=== PATIENT | female | born 1970 | race Caucasian/White ===

== ENCOUNTER → 2018-01-30 09:00 | Outpatient (CLI) | payer OTHER, SELFPAY ==
[2018-01-08 13:39] VITALS: BMI 23.1
--- NOTE | 2018-01-30 09:03 | BI_ITS ---
MAMMOGRAPHY - BILATERAL DIAGNOSTIC REASON FOR EXAM: Female, 47 years old. PERTINENT HISTORY: Non-contributory. TECHNIQUE: Digital examination. Mediolateral oblique (MLO) and craniocaudad (CC) views of both breasts were obtained. CAD: COMPARISON: January 08, 2015 FINDINGS: Breast Composition: Heterogeneous dense fibroglandular tissue that may obscure an underlying small lesions. There are no dominant masses or suspicious calcifications. Multiple there are benign scattered calcifications bilaterally. No other significant abnormalities are identified. No significantly enlarged lymph nodes in the axillary areas BI/DIAG MAMM W/CAD, BILAT IMPRESSION: Stable bilateral diagnostic mammogram. ASSESSMENT CATEGORY: BIRADS-ll. FOLLOW UP RECOMMENDATION on a yearly basis: Approximately 10% of breast cancers are not detected by mammography. A normal mammogram should not delay biopsy of a clinically suspicious abnormality. Electronically Signed: Karlene Devi, at 9:19 EST Tel , Service support ,
== END ==
PROVIDERS: Family Provider Family Medicine; PCP Family Medicine; Referring Provider Nurse Practitioner Family; Visit Provider Family Medicine
DX: N64.4 Mastodynia (principal)
CPT/HCPCS: 77062; 77066; G0279

== ENCOUNTER → 2018-09-12 16:43 | Outpatient (CLI) | payer OTHER, SELFPAY ==
[2018-01-08 13:39] VITALS: BMI 23.1
[2018-09-12 17:31] LABS: Hematocrit 40.4 % (37-47); Hemoglobin 13.6 g/dL (12.0-15.0); Mean Corp Hgb Conc 33.7 g/dL (32-36); Mean Corpuscular Volume 95.1 fL (81-99); Mean Platelet Vol. 10.6 fl (6.2-12.0); Platelet Count 289 K/mm3 (150-450); RBC Distribution Width SD 38.5 fl (35.1-43.9); Red Blood Count 4.25 M/mm3 (4.2-5.4); White Blood Count 8.1 K/mm3 (4.4-11.0)
[2018-09-12 18:10] LABS: Amylase 27 U/L (25-115); Lipase 104 U/L (73-393); Thyroid Stim Hormone (TSH) 2.06 uIU/mL (0.358-3.74)
[2018-09-13 10:03] LABS: ALB/GLOB Ratio 1.1 RATIO (0.9-2.4); AST(SGOT) 197 U/L (15-37); Alanine Aminotransfer ALT/SGPT 139 U/L (13-56); Albumin, Serum 4.1 g/dL (3.2-5.0); Alkaline Phosphatase 99 U/L (45-117); Anion Gap 12 (5-15); BUN 16 mg/dL (7-18); BUN/Creat Ratio 19.6 RATIO (10-20); Calcium,Total 9.9 mg/dL (8.5-10.1); Chloride 103 mmol/L (98-107); Creatinine, Serum 0.82 mg/dL (0.55-1.02); EST Glomerular Filtration Rate 80 mL/min (>60); Est Glom Filt Rate - Afr Amer 96 mL/min (>60); Globulin 3.7 g/dL (2.2-4.2); Glucose 111 mg/dL (74-106); Protein, Total 7.8 g/dL (6.4-8.2); Sodium Level 141 mmol/L (136-145)
== END ==
PROVIDERS: Family Provider Family Medicine; PCP Family Medicine; Referring Provider Family Medicine; Visit Provider Nurse Practitioner Family
DX: R10.9 Unspecified abdominal pain (principal)
CPT/HCPCS: 36415; 80053; 82150; 83690; 84443; 85027

== ENCOUNTER → 2018-09-16 08:42 | Outpatient (CLI) | payer OTHER, SELFPAY ==
[2018-01-08 13:39] VITALS: BMI 23.1
--- NOTE | 2018-09-16 08:51 | US_ITS ---
STUDY: ABDOMINAL ULTRASOUND REASON FOR EXAM: Female, 48 years old. Diffuse abdominal pain TECHNIQUE: Transabdominal ultrasound was performed with real-time and static wong scale imaging. TECHNICAL QUALITY: Adequate. COMPARISON: None. FINDINGS: Liver: The liver measures 15.9 cm. There is normal echogenicity of the liver. The bile ducts are within normal limits. There is hepatic color flow. The direction of portal flow is hepatopetal. There is no demonstrated mass lesion. Portal vein measurement: Gallbladder: Normal distended gallbladder. The gallbladder wall measures 2.4 mm. There is a negative sonographic Jordan's sign. There is no pericholecystic fluid. There are multiple echogenic structures within the gallbladder, consistent with multiple gallstones, and a 5.7 mm nonshadowing polyp.. Common Bile Duct (C.B.D.): The common bile duct measures 4.5 mm. Pancreas: Normal size of the head, body and tail of the pancreas. There is normal echogenicity of the pancreas. There is no demonstrated pancreatic mass or cyst. Spleen: Normal size of the spleen. The spleen measures 10.3 cm. There is a 2.6 cm anterior splenic cyst. Right Kidney: Normal size of the right kidney. The right kidney measures 10.7 x 4.5 x 4.5 cm. Normal renal cortex. The right cortex measures 1.5 cm. There is no demonstrated renal mass or cyst. There is no right hydronephrosis. Left Kidney: Normal size of the left kidney. The left kidney measures 10.8 x 5.0 x 4.6 cm. Normal renal cortex. The left cortex measures 1.5 cm. There is no demonstrated renal mass or cyst. There is no left hydronephrosis. Aorta: Tapers normally I.V.C.: The IVC is patent. There is no ascites. US/Abdomen Complete IMPRESSION: Cholelithiasis, no sonographic evidence of acute cholecystitis Splenic cyst No obstructive uropathy Electronically Signed: Evan Mac MD at 20:29 EDT , Service support ,
== END ==
PROVIDERS: Family Provider Family Medicine; PCP Family Medicine; Referring Provider Nurse Practitioner Family; Visit Provider Nurse Practitioner Family
DX: R10.9 Unspecified abdominal pain (principal)
CPT/HCPCS: 76700

== ENCOUNTER 2018-09-28 10:48 | Day surgery (SDC) | payer OTHER, SELFPAY ==
--- NOTE | 2018-09-25 01:48 | HP_ITS ---
Intake Vital Signs 09/25/18 Body Mass Index (BMI) 23.1 09/25/18 Height 5 ft 7 in 09/25/18 Weight: 155 lb 09/25/18 Body Mass Index (BMI) 24.3 09/25/18 Blood Pressure 137/94 H 09/25/18 Blood Pressure Location Rt brachial 09/25/18 Pulse Rate 72 09/25/18 Pulse Source Monitor 09/25/18 Temperature 97.7 F L 09/25/18 Temperature Source Oral 09/25/18 Pulse Ox 98 09/25/18 Oxygen Delivery Method room air Intake Visit Reasons: Cholelithiasis [facility] U/S 09/16/18 Chief Complaint: Right breast pain. [employer] Member Required: No Is patient in pain?: No Allergies No Known Allergies Allergy (Verified 09/25/18 13:28) Medications ibuprofen 200 mg tablet 200 mg PO TID-QID PRN 01/08/18 [History Confirmed 09/25/18] [facility] Medical History Incontinence (Acute) Surgical History HISTORY OF KIDNEY STONE REMOVAL (Acute) History of eye surgery (Acute) Family History (Updated 09/25/18 @ 13:27 by Kortney Glynn) Mother Hypertension Sister Hypertension Social History (Updated 09/25/18 @ 13:49 by Alexis Lr MD) Smoking Status: Never smoker alcohol intake: never substance use type: does not use HPI HPI HPI: THEODORE JONES, is a 48 F who presents to the office today for HPI HPI Surgical H&P: Yes HPI: THEODORE JONES, is a 48 F who presents to the office today for surgical consultation regarding an episode of epigastric pain with radiation to her back that was so severe that she had to be taken from the [facility] to the emergency room. She has had a couple additional episodes since then. She denies fever or chills or sweats. Today she still does not feel well. She was seen on September 12 with an AST of 197 and alkaline phosphatase of 99 and ALT of 139 and a total bilirubin of 0.7. White blood cell count was 8.1 with he will 13.6 and hematocrit 40.4 and a platelet count of 289,000. At the [facility] on September 16, 2018 she had a ultrasound showing multiple stones in the gallbladder. Gallbladder wall is 2.4 mm. No pericholecystic fluid. Multiple stones and may be 5.7 mm nonshadowing polyp. Common bile duct was 4.5 mm. Splenic cyst was seen. The patient has not had any previous abdominal surgery. She did not recognize that she has a small umbilical hernia. She otherwise remains active. She enjoys good health. ROS General General: No weight change, appetite, fatigue, colon cancer, breast cancer or weakness HEENT HEENT: Yes eye surgery; no difficulty swallowing, eye injury, swollen glands or hoarseness Endo Endocrine: No thyroid disease, diabetes mellitus, thyroid cancer, Hair loss, heat intolerance or cold intolerance Skin Skin: No rash or changing moles Breast Breast: No left breast lump, right breast lump, nipple discharge, breast pain, abnormal mammogram, abnormal US or breast enlargement Musc Musculoskeletal: No back problems, arthritis, rheumatoid arthritis, gout or joint pain Cardio Cardiovascular: No murmur, pacemaker, heart disease, atrial fibrillation, high blood pressure, heart attack, heart stent, palpitations, shortness of breat with exertion or chest pain Psych Psychiatric: No depression, anxiety or hearing voices Resp Respiratory: No shortness of breath, No sleep apnea, No cough, No COPD, No asthma, No emphysema, No wheezing Gastro Gastrointestinal: Yes abdominal pain, Yes nausea or vomiting, No diarrhea, No constipation, No blood in stool, No acid reflux, No hemorrhoids, No ulcers, Yes gallbladder problem, No black,tarry stools Dario Hematologic: No blood thinners, No blood disorders, No bleeding, No anemia, No blood clots Neuro Neurologic: No system reviewed and no additional complaints, except as docu, No as per HPI, No abnormal walking, No abnormal hearing, No abnormal movements, No abnormal speech, No behavioral changes, No burning sensations, No confusion, No seizure-like activity, No unsteadiness, No dizziness, No localized weakness, No frequent falls, No headache(s), No lack of coordination, No loss of vision, No memory loss, No numbness, No other visual disturbances, No radiating pain, No restless legs, No sensory deficit, No fainting, No tingling, No tremor(s), No weakness, No other Exam Const General: cooperative, healthy appearing, comfortable, no acute distress Nutritional Appearance: average body habitus Orientation: alert, awake, oriented x3 HENMT Head: normal to inspection Eyes General: appearance normal, both eyes and all related structures Chest Chest palpation & inspection: normal inspection of the chest Breast Palpation: No nipple discharge Resp Effort & Inspection: normal respiratory effort Auscultation: clear to auscultation bilaterally Cardio Rate: regular rate Heart Sounds: no murmurs GI Palpation: soft Auscultation: normal bowel sounds Other: Small nontender umbilical hernia with preperitoneal fat Musc Cervical Spine: normal cervical lordosis Neuro Cognition: normal cognition Extrem General: no calf tenderness bilaterally Psych Affect: normal affect Assessment & Plan Problems 1. Calculus of gallbladder with chronic cholecystitis without obstruction K80.10 2. Umbilical hernia without obstruction or gangrene K42.9 Plan 48-year-old female. Findings are very much consistent with chronic cholecystitis cholelithiasis. She still is not feeling completely normal consistent with ongoing biliary colic. She has a small umbilical hernia. I recommend to her a laparoscopic cholecystectomy with selective cholangiograms and an umbilical herniorrhaphy. The patient and her have had an opportunity to ask and have questions answered. We will schedule and expedite her care. I very much appreciate the kind opportunity of assisting with her surgical care. CC: Dr. RASHID Abbott and Jimy Begum, HAT TRIMMER Alexis Lr M.D., F.A.C.S. Coding Level of Care Code Off vis,new,level 3 Diagnoses Calculus of gallbladder with chronic cholecystitis without obstruction K80.10 ??Cholelithiasis location: gallbladder ??Biliary obstruction: without biliary obstruction Umbilical hernia without obstruction or gangrene K42.9 09/25/18 1349 <Electronically signed by Alexis villagomez MD> Date _ Alexis Lr MD I have re-examined the patient. There are no clinical changes since date of exam.
[2018-09-25 13:29] VITALS: BMI 23.1
[2018-09-28] VITALS (10 sets, daily range): BP systolic 109–126; BP diastolic 63–79; PULSE 65–82; RESP 16; TEMP 36.7–37.1; O2SAT 93–100; BMI 23.6
--- NOTE | 2018-09-28 | GALL_PTH ---
PATIENT: THEODORE JONES LOC: [facility] [place] U#:[id number] AGE/SX: 48/F ROOM: RE09/28/[address]: Dr. Alexis Lr MD : 1970 BED: DIS: 09/28/2018 SPEC #: [id number] RECD: 09/28/18 15:50 STATUS: RAJ CHERRY #: [id number] VITA: 09/28/18 00:[address]: Alexis Lr DEPT: SURGICAL PATHOLOGY RECD BY: Andrea Diaz ENTERED: 09/29/18 08:52 SP TYPE: IZZY JESUS DR: Dr. Ryan Abbott MD Tissues: Gallbladder, NOS Procedures: Surgery Specimen Level III HEADER OPERATION: Laparoscopic cholecystectomy with IOC, umbilical hernia repair PRE-OP DIAGNOSIS: Calculus of gallbladder with chronic cholecystitis without obstruction, cholelithiasis, umbilical hernia TISSUE SUBMITTED: Gallbladder MICROSCOPIC DIAGNOSIS Gallbladder, cholecystectomy: Cholesterolosis, chronic cholecystitis and sludge. AM:mark 10/02/17 MICROSCOPIC DESCRIPTION Slides are reviewed. GROSS DESCRIPTION Received is one container labeled with the patient's name and designated gallbladder. The specimen consists of a gallbladder measuring 8.5 cm in length and up to 4 cm in diameter. The external surface is pink-wells, smooth and glistening for the most part. Focally it is granular, hemorrhagic and contains cautery artifact. The gallbladder contains green-yellow mucoid bile and multiple irregular greenish black stone, stone fragment and sludge material measuring in aggregate 3.5 cm x 3 cm x 1 cm and 0.1 to 0.5 cm in greatest dimension. The gallbladder wall measures up to 0.2 cm in thickness. Paper Stacker sections from the gallbladder and the cystic duct are submitted in one cassette. / SJ:sp 09/29/18 TC: 3 CPT: 66251
--- NOTE | 2018-09-28 10:53 | EKG12_ITS ---
Test Reason : PREOP Blood Pressure : / mmHG Vent. Rate : 067 BPM Atrial Rate : 067 BPM P-R Int : 180 ms QRS Dur : 088 ms QT Int : 432 ms P-R-T Axes : 058 034 039 degrees QTc Int : 456 ms Normal sinus rhythm Normal ECG No previous ECGs available Confirmed by BRIDGETTE GRENEE, MASSIEL ([id number]), pictures editor FLAQUITO TREJO ([id number]) on 10/02/2018 1:38:28 PM Referred By: Alexis Lr Confirmed By:MASSIEL ANGELES MD
[2018-09-28 11:19] LABS: Internal QC Validated? YES +Cl - CLEAR BKGD; Pregnancy, Urine Negative Negative
[2018-09-28] MEDS: Lactated Ringers 1,000 ML 15 ML IV (11:53)
--- NOTE | 2018-09-28 12:35 | RAD_ITS ---
PROCEDURE: FLUOROSCOPY ASSISTANCE DATE OF EXAMINATION: 09/28/2018 INDICATION: Female, 48 years old. Intraoperative cholangiogram FLUOROSCOPY TIME (if supplied): (0:23) minutes/seconds. 161 cine fluoroscopic images. RADIATION DOSAGE (If Supplied By Facility): Please see attached dosage report. IMPRESSION/FINDINGS: Images depict intraoperative cholangiogram, no apparent filling defect within the biliary tree, nondilated common bile duct, normal tapering into the sphincter, normal spillage into the small bowel. Fluoroscopic images submitted to PACS for procedural/postsurgical documentation. Please see procedural/surgical note. Radiologist not present at the time of examination. Electronically Signed: Juan Bianchi MD at 14:32 EDT Tel , Service support , RAD/Cholangiogram/ O R,Initial
[2018-09-28] MEDS: Cefazolin 2 GM in 0.9% Normal Saline 100 ML IV (12:39)
--- NOTE | 2018-09-28 12:50 | PCM.DC.GS ---
Discharge Diet: Light diet - advance as tolerated - if you have questions about your diet instructions, please talk to you doctor. Discharge Activity: May Not Drive - for 3-5 days or while taking narcotic pain medicine. May shower in (days): 1 Lifting Restrictions: 10 pounds Call your doctor if your incision/area has: Continuous Slow Oozing, Sudden Increased Bleeding, Increased Pain/ Swelling, Increased Redness, Foul Smelling Discharge Call your doctor if you observe: Fever of 101 or Higher Suture Line Care: Avoid Pulling/Pushing, Avoid Pinching/Bending Additional Dressing/Incision Instructions:: Change or remove dressing in 4 days. Leave steri-strips in place for 1 week. Allergies/Adverse Reactions: Allergies No Known Allergies Allergy (Verified 09/28/18 11:34) Medications to take at Discharge ibuprofen 200 mg tablet 200 mg PO TID-QID PRN 01/08/18 Hydrocodone Bitart/Apap 5-325 [Pearson 5MG-325MG] 1 tab PO Q4H PRN PRN 2 Days #8 tab 09/28/18 The following prescriptions were given: Hydrocodone Bitart/Apap 5-325 [Pearson 5MG-325MG] 1 tab PO Q4H PRN PRN 2 Days #8 tab PRN Reason: Pain Transmission Status: Received by [facility] Orders to be completed after discharge: ,Urine Time Frame: 09/28/18, Facility: [facility], Location: Laboratory Primary Care Physician: Ryan Abbott MD [Primary Care Provider] - Test Results: Test results from this visit will be discussed in further detail at your follow-up appointment, if applicable. Please Follow Up With: Alexis Lr MD - [phone] When: Call to make an appointment to be seen in about 10 days.
[2018-09-28] MEDS: Bupivacaine Mpf 0.5% 30 ML VIAL (14:00)
--- NOTE | 2018-09-28 14:00 | OP.PCM_ITS ---
Problem List (1) Cholelithiasis with chronic cholecystitis Status: Chronic Qualifiers: Cholelithiasis location: gallbladder Biliary obstruction: without biliary obstruction Qualified Code(s): K80.10 - Calculus of gallbladder with chronic cholecystitis without obstruction (2) Umbilical hernia without obstruction or gangrene Status: Acute Report of Operation Date of Procedure: 09/28/18 Pre-Operative Diagnosis: Chronic cholecystitis, cholelithiasis, umbilical hernia Post-Operative Diagnosis: Same Surgery/Procedure Performed:: Laparoscopic cholecystectomy with cholangiograms. Umbilical herniorrhaphy Description of Surgical Findings:: Timeout and informed consent was obtained. 48-year-old female was taken out from placement table underwent general endotracheal intubation anesthesia. Ancef 2 g given intravenous preoperatively. The abdomen sterilely prepped draped. A curvilinear incision was made in the inferior portion of the umbilicus. Sharp dissection was carried down through the subcutaneous tissue. The umbilical hernia was encountered tissue was dissected free to get access to the fascia elevating the umbilical skin. A son catheter was inserted and the abdomen was insufflated with CO2 to a pressure of 10 mmHg pressure. 5-minute trochars were placed in the epigastric right upper quadrant right lateral upper quadrant region. The abdomen was rapidly inspected no evidence of any superficial abnormalities other than there was adhesions of the thinned out omentum to the gallbladder. The gallbladder was distracted and blunt dissection hemo-lock clips and electrocautery dissection was required to free the omentum from the gallbladder to allow for distraction of the gallbladder. The duodenum was febrile densely adherent to the gallbladder and it had to be carefully dissected free as well. Then the infundibular area could be identified. It was bluntly dissected free until clearly the cystic artery and cystic duct were identified. The critical view was achieved. 2 hemo-lock clips were placed on the cystic artery and one distally prior to transecting it. A hemo-lock clip was placed on the cystic duct incision within the cystic duct and a clench Abhijeet catheter inserted through a 14-gauge Angiocath. Fluoroscopically control claims grams were obtained demonstrating normal ductal anatomy and free flow into the small bowel. The cholangiogram catheter was removed and additional hemo-lock clip was placed on the cystic duct stump prior to transecting it. Additional hemo-lock clips were used on the gallbladder peritoneum to obtain hemostasis. The gallbladder was dissected free from the liver bed using electrocautery. Complete hemostasis was intact. The gallbladder was placed in a retrieval bag. The right upper quadrant was irrigated and aspirated free of excess fluid. The liver bed was again inspected and it was noted to be hemostatic. The gallbladder was then exited through the umbilicus. The remaining trochars removed under visualization and the abdomen was allowed to deflate of the CO2. The umbilical hernia was approximated transversely with multiple simple sutures of 0 Nurolon. Excess umbilical skin was sharply transected free to allow for a more cosmetic closure. The excess skin was discarded after inspection. Skin edges were approximated with interrupted 4 Monocryl subdermal stitches. Steri- Strips Telfa OpSite dressings applied. Sponge and instrument and needle counts were reported the surgeon to be correct. Blood loss was minimal. She tolerated the procedure well was taken to the recovery area in satisfactory condition without apparent complication. Specimens gallbladder. Drains none. Blood loss minimal. Alexis Lr M.D., F.A.C.S. Type of Anesthesia:: General Anesthesiologist: Adams Skelton
[2018-09-28] MEDS: Lactated Ringers 1,000 ML 100 ML IV (16:01)
== END 2018-09-28 16:53 | disposition home or self-care (01) ==
LOC: SDC 10:49 → AC 10:50
PROVIDERS: Anesthesiology; Family Provider Family Medicine; PCP Family Medicine; Referring Provider Surgery; Visit Provider Surgery
PROC: (CPT 47610; principal; 2018-09-28 12:15)
DX: K80.11 Calculus of gallbladder with chronic cholecystitis with obstruction (principal); K42.9 Umbilical hernia without obstruction or gangrene; Z87.442 Personal history of urinary calculi
CPT/HCPCS: 47563; 49585; 74300; 76000; 81025; 88304; 93005; J7120; J2405

== ENCOUNTER → 2019-10-05 15:03 | Outpatient (CLI) | payer OTHER, SELFPAY ==
[2018-09-28 11:38] VITALS: BMI 23.6
[2019-10-11 06:37] LABS: HPV APTIMA, High Risk Negative (Negative); HPV Reflexed? NOT INDICATED
== END ==
PROVIDERS: PCP Family Medicine; Visit Provider Student in an Organized Health Care Education/Training Program
DX: Z12.4 Encounter for screening for malignant neoplasm of cervix (principal)
CPT/HCPCS: 88175; G0145

== ENCOUNTER 2020-02-11 00:17 | Emergency (ER) | payer OTHER, SELFPAY ==
[2018-09-28 11:38] VITALS: BMI 23.6
[2020-02-11 00:19] VITALS: BP 153/83; PULSE 78; RESP 16; TEMP 36.4; O2SAT 95; BMI 25.3
--- NOTE | 2020-02-11 00:51 | ED.VIS.UPPEX ---
History of Present Illness Chief Complaint: Bite Informant: Patient Occurred: Today - JPTA Mechanism/Context: - - accidentally bitten by her dog Context: Sudden Onset Timing: Continuous Quality of Pain: - - sore Location: R palm Current Severity: Mild Maximum Severity: Moderate Worsened by: palpation Relieved by: remaining still Associated Symptoms: Negative for: Parasthesia, Weakness, Loss of Funtion Narrative: Accidentally bitten by her dog as he thought she was reaching down to take his new bone away. Dog is not ill. Patient [id number]. Tetanus Immunization: <5 years Past Medical History - Allergies and Home Meds Allergies/Adverse Reactions: Allergies No Known Allergies Allergy (Verified 02/11/20 00:18) Primary Care Physician: Ryan Abbott MD [STAFF PHYSICIAN] - Smoking Status: Never smoker Review of Systems General: Denies: Chills, Fever, Sweats Musculoskeletal: Reports: Extremity Pain. Denies: Swelling Skin: Reports: Wounds. Denies: Rash Neurological: Denies: Headache, Weakness, Numbness Physical Exam Vital Signs/Narrative: Vital Signs Temp Pulse Resp BP Pulse Ox 02/11/20 00:19 97.6 F L 78 16 153/83 H 95 General: Well nourished, Well developed, - - NAD Head: Normocephalic, Atraumatic Extremeties: Superficial laceration to the palm. Minor oozing of blood. Full range of motion of all joints of all fingers. No other injury. No sign of infection. Skin: Normal color, Trauma - 3cm partial-thickness clean appearing mostly linear laceration to the right palm, near the volar aspect of the MCPJ of the middle finger Neurological: Alert, Oriented x3, Cranial nerves II-XII grossly intact, Normal Strength, Normal Sensation Psychological: Normal affect, Normal Mood Diagnostic/Tx/Re-eval - Medical Decision Making Laceration repaired loosely with 3 sutures, started on Augmentin for prophylaxis although I think the risk of this getting infected is low since the laceration does not protrude beyond the dermis, we discussed reasons to return and suture removal in 10-14 days. Procedures - Lacerations R hand Length: 3 cm Depth: Skin Shape: Linear Prep: Sterile Conditions, Chlorhexadine Laceration repair: Lidocaine - 2%, 1cc, Local Number of Sutures/Jacqueline: 3 Suture Information: Ethilon, Simple, 5-0 ED Disposition - Plan for ED Patient: Disposition: Home or Assisted Living Diagnosis: Dog bite of right hand, Laceration of right hand Instructions: ED Dog Bite, ED Laceration, Hand: All Closures Prescriptions: Amox/Clavulanate Tablet [Augmentin Tablet] 875 mg PO Q12H 5 Days #10 tab Transmission Status: Pending to [facility] Referrals: Ryan Abbott MD [STAFF PHYSICIAN] - 10-14 Days suture removal (Or ER/urgent care)
[2020-02-11] MEDS: Lidocaine/Epi/Tetracaine 50 ML 1 APPLIC TOPICAL (00:55)
[2020-02-11] MEDS: Lidocaine 2% (20 ml mdv) 20 ML Vial 10 ML INFILT (01:36)
[2020-02-11] MEDS: Amox/Clavulanate 875 MG Tablet PO (01:36)
[2020-02-11 01:43] VITALS: RESP 16
== END 2020-02-11 01:44 | disposition home or self-care (01) ==
PROVIDERS: Emergency Provider Emergency Medicine; PCP Family Medicine
DX: S61.451A Open bite of right hand, initial encounter (principal); W54.0XXA Bitten by dog, initial encounter
CPT/HCPCS: 12002; 99284

== ENCOUNTER 2020-07-10 05:57 | Day surgery (SDC) | payer OTHER, SELFPAY ==
[2020-07-08 10:44] LABS: Hematocrit 39.5 % (37-47); Hemoglobin 13.2 g/dL (12.0-15.0); Mean Corp Hgb Conc 33.4 g/dL (32-36); Mean Corpuscular Volume 95.6 fL (81-99); Mean Platelet Vol. 10.4 fl (6.2-12.0); Platelet Count 277 K/mm3 (150-450); RBC Distribution Width CV 11.8 % (11.6-14.6); RBC Distribution Width SD 40.4 fl (35.1-43.9); Red Blood Count 4.13 M/mm3 (4.2-5.4); White Blood Count 5.9 K/mm3 (4.4-11.0)
[2020-07-10 06:16] LABS: Internal QC Validated? YES +Cl - CLEAR BKGD; Pregnancy, Urine Negative Negative
[2020-07-10 06:26] VITALS: BP 117/77; PULSE 64; RESP 16; TEMP 36.2; O2SAT 98; BMI 25.0
[2020-07-10] MEDS: Lactated Ringers 1,000 ML 100 ML IV (06:32)
--- NOTE | 2020-07-10 07:10 | PCM.HP.BLA ---
History and Physical Date of Admission: 07/10/20 HISTORY OF PRESENT ILLNESS: On 07/04/2020, Neeru Holbrook, a 50 year old female 3 0 0 0 3, presented for:hysteroscopy and D+C for post menopausal bleeding with thickened endometrial stripe. Attempted EMB in office, unable to complete due to cervical stenosis. ALLERGIES: NKA MEDICATIONS HISTORY: Patient is also takin. No Meds REVIEW OF SYSTEMS: GENERAL - Denies fever, or chills SKIN - Denies skin changes EYES - Denies visual changes EARS - Denies difficulty hearing NOSE - Denies nasal congestion or bleeding MOUTH - Denies sore throat or difficulty swallowing NECK - Denies pain or swelling RESPIRATORY - Denies shortness of breath or wheezing CARDIOVASCULAR - Denies palpitations or chest pain GASTROINTESTINAL - Denies nausea, vomiting, diarrhea, constipation GENITOURINARY - Denies dysuria, frequency of urination, incontinence of urine MUSCULOSKELETAL - Denies joint or muscle pain NEUROLOGICAL - Denies localized numbness or weakness PSYCHIATRIC - Denies depression or anxiety ENDOCRINE - Denies heat or cold intolerance, weight loss or gain HEMATO-IMMUNOLOGIC - Denies excesive bleeding with cuts PAST HISTORY: Breast/Ovarian/Colon Cancers - Denies Infections - Chicken pox Illnesses - no serious past illnesses Accidents - no injuries of consequence History of Abnormal PAPS - Denies Hospitalizations - Childbirth SURGICAL HISTORY: 1. basket extraction, 2008 2. LEFT eye surgery 3. 09/16/2018 cholecystectomy [facility] MENSTRUAL HISTORY: LMP Known?- Approximate-Month KnownAmount/Duration - 7 days, Regularity - Irregular, Frequency - variable days, LMP - 05/16/20, Age Onset Menarche - 13 PAST PREGNANCIES: Total Pregnancies - 3; Full Term Pregnancies - 3; Premature - 0; Abortions, Induced - 0; Abortions, Spontaneous - 0; Ectopics - 0; Multiple Births - 0; Living Children - 3 FAMILY HISTORY (OLD): Family history of Heart Disease. Paternal Grandmother: Vaginal Cancer. 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 Drug Use - denies use of street drugs Sexual Activity - Spouse-Sig Other Name - Brayden Spouse-Sig Other Occupation - [employer] Spouse-Sig Other Phone No - [phone] Children Name(s) - Alec Medrano Audrey Control - Vasectomy BP- 106/72 Sitting, Right arm, regular cuff Weight- 155.60 lbs Height- 66.50 inch BMI:24.79 CONSTITUTIONAL - NAD, well nourished, and well developed SKIN - No rash, lesions, or ulcers HEENT - Normocephalic, PERRLA, EOMI NECK - No nodes, no nuchal rigidity and thyroid normal size and texture LYMPH NODES - Palpation of lymph nodes in neck and groins within normal limits LUNGS - CTA x2 without wheezes, crackles or rales CARDIAC - Regular rate and rhythm without rubs, murmurs, or gallops ABDOMEN - Without hepatosplenomegaly, distention, masses, rebound, or guarding; normal bowel sounds; no hernias EXTREMITIES - No edema or calf tenderness NEUROLOGICAL - Cranial nerves II-XII grossly intact PSYCHIATRIC - A and O to time, place, person, mood and affect ASSESSMENT/Plan: Postmenopausal Bleeding No menses for a couple years, bleed x1 this summer. Was seen in fall for US. ES >4 mm. EMB attempted but cervical stenosis was present and procedure could not be completed. Patient had been referred to Dr. Larson for management of prolapse and incontinence, and she was lost to follow up until recently. Pt is low risk for endometrial cancer being thin, having children. However emphasized need for evaluation Planned hysteroscopy dilation and curettage due to episode of PMB and thickened endometrial stripe. R/B/A discussed. Risks include, but are not limited to: risk of bleeding to the point of transfusion, infection, injury to surrounding tissue including bowel/bladder, uterine perforation, VTE, ICU admission.
--- NOTE | 2020-07-10 07:30 | UTC_PTH ---
PATIENT: THEODORE [place]ON[place] [facility] [id number] AGE/SX: 50/F ROOM: RE07/10/[address]: Dr. Cherise Abbott DO : 1970 BED: DIS: 07/10/2020 SPEC #: [id number] RECD: 07/10/20 11:33 STATUS: RAJ RERoxana #: [id number] VITA: 07/10/20 07:[address]: Cherise Abbott DEPT: SURGICAL PATHOLOGY RECD BY: Edith Ohara ENTERED: 07/10/20 12:20 SP TYPE: GA VANGIE JESUS DR: MD Dr. Tonya Bob MD Tissues: Uterine cervix, NOS Procedures: Surgery Specimen Level IV HEADER OPERATION: Hysteroscopy, dilation and curettage PRE-OP DIAGNOSIS: Postmenopausal bleeding TISSUE SUBMITTED: Uterine curettings MICROSCOPIC DIAGNOSIS Uterine curettings: Proliferative endometrium. Fragments of benign endocervical mucosa. JYOTI:taylor 07/11/2020 MICROSCOPIC DESCRIPTION Slides are reviewed. GROSS DESCRIPTION Received in fixative is one container labeled with the patient's name and designated uterine curettings. The specimen consists of multiple irregular fragments of wells-pink soft tissue that in aggregate measure 3 x 2.5 x 0.1 cm. The specimen is totally submitted in one cassette. / JYOTI:taylor 07/10/20 TC:4 CPT: 38667
--- NOTE | 2020-07-10 07:31 | HP.PCM_ITS ---
HPI - General General Date of Admission: 07/10/20 HPI Narrative THEODORE JONES, is a 50 F who presents for cystoscopy for further evaluation of her incontinence and pelvic floor dysfunction. Informed consent was obtained. [facility] Medical History (Updated 07/10/20 @ 07:[address] Tonya Larson MD) Cholelithiasis with chronic cholecystitis Incontinence Stress incontinence Umbilical hernia without obstruction or gangrene Voiding dysfunction Home Medications NK 07/03/20 [History Last Taken Unknown] Allergy/AdvReac Type Severity Reaction Status Date / Time No Known Allergies Allergy Verified 07/03/20 08:05 Family History Mother Hypertension Sister Hypertension Surgical History History of eye surgery HISTORY OF KIDNEY STONE REMOVAL History of laparoscopic cholecystectomy (~09/28/18) Social History Smoking Status: Never smoker alcohol intake: never substance use type: does not use ROS Constitutional Constitutional: Reports systems reviewed and no addt'l complaints, except as documented Eyes Eyes: Reports systems reviewed and no addt'l complaints, except as documented ENT HEENT: Reports systems reviewed and no addt'l complaints, except as documented Cardiovascular Cardiovascular: Denies chest pain, diaphoresis, dyspnea or irregular heart rhythm Respiratory/Chest Respiratory/Chest: Denies chest tightness, cough or dyspnea Gastrointestinal Gastrointestinal: Reports systems reviewed and no addt'l complaints, except as documented; Denies change in bowel habits Genitourinary Genitourinary: Reports systems reviewed and no addt'l complaints, except as documented, urinary incontinence and urinary urgency Musculoskeletal Musculoskeletal: Reports systems reviewed and no addt'l complaints, except as documented Integumentary Integumentary: Reports systems reviewed and no addt'l complaints, except as documented Neurologic Neurologic: Reports systems reviewed and no addt'l complaints, except as documented Psychiatric Psychiatric: Reports systems reviewed and no addt'l complaints, except as documented Endocrine Endocrinology: Reports systems reviewed and no addt'l complaints, except as documented Hematologic/Lymphatic Hematologic/Lymphatic: Reports systems reviewed and no addt'l complaints, except as documented Vital Signs Vital Signs Vital Signs: 07/10/20 06:26 Temperature 97.2 F L Temperature Source Temporal Pulse Rate 64 Respiratory Rate 16 Respiratory Pattern Normal Blood Pressure 117/77 Blood Pressure Mean 90 Blood Pressure Source Monitor Blood Pressure Position Semi-Fowlers Blood Pressure Location Right Arm Pulse Ox 98 Oxygen Delivery Method Room Air Weight Weight: 72.4 kg Body Mass Index (BMI) 25.0 Physical Exam Const alert, oriented x3, no apparent distress and healthy appearing General Appearance: cooperative, comfortable, well kempt and well developed Orientation / Consciousness: awake Exam Limitations: no limitations HEENT normocephalic, head/scalp atraumatic and hearing grossly normal bilaterally Eyes conjunctivae normal and no scleral icterus General Eye: normal appearance of both eyes Neck supple General: trachea midline Chest inspection of chest normal Chest: symmetrical chest wall rise Resp normal respiratory effort, normal air movement, no retractions and no use of accessory muscles Effort and Inspection: able to speak in complete sentences and symmetric chest movement Cardio regular rate and regular rhythm GI soft to palpation, non-tender and non-distended no CVA tenderness, external exam normal and appearance of the vagina normal Back/Spine no CVA tenderness Extremity normal to inspection, no calf tenderness and no pedal edema Skin no rashes or lesions noted, no wounds, skin turgor normal, no jaundice, no petechiae and no mottling Neuro oriented x3, CN's II-XII intact bilaterally and moves all extremities Psych mental status grossly normal and thought process normal Lab / Micro Data Result Diagrams: 07/08/20 08:44 Labs: Laboratory Results - last 24 hr 07/10/20 06:00 Urine Test Negative Assessment & Plan Assessment/Plan (1) Stress incontinence: PLAN: cystoscopy under anesthesia. (2) Voiding dysfunction: Procedure Criteria Type of Procedure Procedure Type: Elective Elective Risks - COVID COVID Risk Discussion: The surgeon/proceduralist and patient have discussed in detail the risk of exposure to and/or potential harm posed by the COVID-19 virus with having a surgery/procedure at this time versus the risk of delaying the surgery/procedure. It is not possible to know either the risk of delaying the surgery or procedure or chance of getting an infection with perfect accuracy, bu t a joint decision was made between the patient and the surgeon/proceduralist to proceed at this time with the scheduled surgery/procedure as indicated on the consent form.
--- NOTE | 2020-07-10 07:51 | PCM.DC ---
Discharge Instructions Diet Discharge Diet: No restrictions Activity Discharge Activity: Return to Normal Activity, No Restrictions and May Shower May resume sexual activity in: 2 weeks Weight Bearing Status: Weight bearing as tolerated Dressing / Incision Call your doctor if you observe: Fever of 101 or Higher, Numbness or Tingling, Inability to urinate, Inability to have a bowel movement, Shortness of breath, Dizziness, Swelling in the ankles, Chest pain and Calf discomfort Cleanse incision/area with: Soap & Water Follow Up Care Please Follow Up With: Cherise Abbott When: 2 weeks Test Results: Test results from this visit will be discussed in further detail at your follow-up appointment, if applicable. Discharge Plan Admission Primary Reason for Your Visit: Post menopausal bleeding Attending Provider: Cherise Abbott Primary Care Provider: Jennifer Combs Consulting Providers: Tonya Larson Discharge Orders/Prescriptions Prescriptions: No Action NK RF: 0 Referrals / Follow Up: Jennifer Combs MD [Primary Care Provider] - Disposition Disposition (needs filled in before D/C Order can be placed): Home, self care
--- NOTE | 2020-07-10 07:52 | OP.PCM_ITS ---
Report of Operation Date of Procedure: 07/10/20 Pre-Operative Diagnosis: Post menopausal bleeding Post-Operative Diagnosis: Post menopausal bleeding Surgery/Procedure Performed:: Hysteroscopy, dilation and curettage Description of Surgical Findings:: Normal-appearing external genitalia. Moderate uterine descensus. Slightly thickened posterior endometrium. No polyps or fibroids. Type of Anesthesia: MAC Estimated Blood Loss (mL): 5cc Fluids Replaced: 800cc Description of Procedure: Patient taken to the operating room, MAC anesthesia induced. Patient placed in the dorsal lithotomy position and prepped and draped in the usual sterile fashion. Weighted speculum placed in the posterior vagina and Chung retractor used to visualize the cervix. Cervix clamped with single- tooth tenaculum. Cervix sequentially dilated. Hysteroscope placed through cervical canal and visualization of entire endometrial cavity completed, findings as above. Hysteroscope removed. Curettage completed in a 360 degree manner. Single-tooth tenaculum removed, hemostatic. At the end of the procedure all needle, lap, sponge counts correct.
[2020-07-10 08:02] VITALS: BP 102/69; BP 117/77; PULSE 67; RESP 16; TEMP 36.8; O2SAT 93
--- NOTE | 2020-07-10 08:02 | PCM.OPRPT ---
Problems Associated Problem List Diagnoses (1) Voiding dysfunction: (2) Stress incontinence: Report of Operation Date of Procedure: 07/10/20 Pre-Operative Diagnosis: Stress urinary incontinence, voiding dysfunction Post-Operative Diagnosis: Same Surgery/Procedure Performed:: Cystoscopy, pelvic exam under anesthesia Surgeon: Tonya Larson Type of Anesthesia: General Specimen's removed: None Description of Procedure: The patient was taken to the operating room placed on the operating room table. Anesthesia monitored the head, neck, airway, IV access and vital signs throughout the case. Once anesthesia was appropriately ministered the patient was placed into dorsal lithotomy position was prepped and draped in usual sterile fashion. Dr. Abbott performed her portion of the procedure and the case was turned to sd. Pelvic exam was performed revealing no significant prolapse aside from mild uterine prolapse. At this time the cystoscope was inserted through the urethra under direct visualization into the urinary bladder. Bilateral ureteral orifices were observed in the correct anatomic position on the area of the trigone. The remainder of the bladder mucosa was visualized directly and found to be without mass, erythema, ulceration or foreign body. The impression of the uterus was visible. At this time the patient's bladder was emptied and the case was terminated. The patient tolerated the procedure well and was taken to recovery room in good condition. Grafts/Implants Used: None Complications None Admit VTE Documentation VTE Present on Admission: Yes VTE Mechan Device Prophylaxis: SCD's VTE Pharm Prophylaxis ordered?: No Reason prophylaxis not ordered:: Treatment Not Indicated
[2020-07-10 08:05] VITALS: BP 104/69; BP 117/77; PULSE 66; RESP 16; O2SAT 93
--- NOTE | 2020-07-10 08:05 | PCM.DC ---
Discharge Instructions Diet Discharge Diet: No restrictions Activity Discharge Activity: Return to Normal Activity, No Restrictions and May Shower May resume sexual activity in: 2 weeks Weight Bearing Status: Weight bearing as tolerated Dressing / Incision Call your doctor if you observe: Fever of 101 or Higher, Numbness or Tingling, Inability to urinate, Inability to have a bowel movement, Shortness of breath, Dizziness, Swelling in the ankles, Chest pain and Calf discomfort Cleanse incision/area with: Soap & Water Follow Up Care Please Follow Up With: Cherise Abbott Test Results: Test results from this visit will be discussed in further detail at your follow-up appointment, if applicable. Discharge Plan Admission Primary Reason for Your Visit: Post menopausal bleeding Attending Provider: Cherise Abbott Primary Care Provider: Jennifer Combs Consulting Providers: oTnya Larson Discharge Orders/Prescriptions Prescriptions: No Action NK RF: 0 Referrals / Follow Up: Jennifer Combs MD [Primary Care Provider] - Disposition Disposition (needs filled in before D/C Order can be placed): Home, self care
[2020-07-10 08:10] VITALS: BP 105/72; BP 117/77; PULSE 76; RESP 18; O2SAT 95
[2020-07-10 08:15] VITALS: BP 112/75; BP 117/77; PULSE 68; RESP 18; TEMP 36.6; O2SAT 95
[2020-07-10 09:17] VITALS: BP 117/77; BP 130/81; PULSE 66; RESP 16; TEMP 36.1; O2SAT 100
== END 2020-07-10 09:26 | disposition home or self-care (01) ==
LOC: SDC 05:57 → AC 05:57
PROVIDERS: Anesthesiology; Urology; PCP Family Medicine; Referring Provider Student in an Organized Health Care Education/Training Program; Visit Provider Student in an Organized Health Care Education/Training Program
PROC: 0UDB8ZZ Extraction of Endometrium, Via Natural or Artificial Opening Endoscopic (ICD-10-PCS; CPT 58558; principal; 2020-07-10 07:20)
PROC: 0TJB8ZZ Inspection of Bladder, Via Natural or Artificial Opening Endoscopic (ICD-10-PCS; CPT 52000; 2020-07-10 07:20)
DX: N95.0 Postmenopausal bleeding (principal); N81.4 Uterovaginal prolapse, unspecified; N39.3 Stress incontinence (female) (male); Z82.49 Family history of ischemic heart disease and other diseases of the circulatory system; Z90.49 Acquired absence of other specified parts of digestive tract
CPT/HCPCS: 00952; 52000; 57410; 58558; 36415; 81025; 85027; 86850; 86900; 86901; 88305; J7120

== ENCOUNTER → 2020-07-25 07:03 | Outpatient (CLI) | payer OTHER, SELFPAY ==
[2020-07-10 06:26] VITALS: BMI 25.0
--- NOTE | 2020-07-25 07:12 | BI_ITS ---
MAMMOGRAPHY - BILATERAL SCREENING REASON FOR EXAM: Female, 50 years old. Routine annual screening examination. PERTINENT HISTORY: Non-contributory. TECHNIQUE: Digital bilateral breast moni (3D mammographic acquisition) in the CC and MLO projections. 2-D mediolateral oblique (MLO) and craniocaudad (CC) views of both breasts were obtained. CAD: Full Field Digital Mammography with Computer Added Detection was performed. COMPARISON: Comparison is made with prior study 01/30/2018 and 01/08/2015. FINDINGS: Breast Composition: The breasts are extremely dense, which lowers the sensitivity of mammography. There are no dominant masses or suspicious calcifications. Scattered benign-appearing bilateral calcifications. Stable benign-appearing bilateral axillary lymph nodes. No other significant abnormalities are identified. There has been no significant change since the prior study. BI/SCRN MAMM (CAD)W/MONI BILAT IMPRESSION: Stable bilateral screening mammogram. Yearly follow-up mammogram recommended. (A) ASSESSMENT CATEGORY: BIRADS Category 2: Benign. A letter regarding these results will be sent to the patient by the facility within 30 days. Approximately 10% of breast cancers are not detected by mammography. A normal mammogram should not delay biopsy of a clinically suspicious abnormality. [id number] Electronically Signed: Chago Ashby MD at 8:30 EDT , Service support ,
== END ==
PROVIDERS: PCP Family Medicine; Referring Provider Student in an Organized Health Care Education/Training Program; Visit Provider Student in an Organized Health Care Education/Training Program
DX: Z12.31 Encounter for screening mammogram for malignant neoplasm of breast (principal)
CPT/HCPCS: 77063; 77067

== ENCOUNTER → 2020-10-02 11:06 | Outpatient (CLI) | payer OTHER, SELFPAY ==
--- NOTE | 2020-10-02 11:15 | RAD_ITS ---
STUDY: X-RAY - LEFT FOOT CLINICAL: Left foot pain in the fourth and fifth metatarsophalangeal joints, no specific injury. TECHNIQUE: 3 view(s) of the foot. COMPARISON: None. FINDINGS: There is a posterior calcaneal enthesophyte. Otherwise, unremarkable talus, calcaneus, and tarsal bones. Normal visualized subtalar, talonavicular, calcaneocuboid, tarsal and tarsometatarsal articulations. Normal metatarsi. Normal metatarsophalangeal joint of the great toe. Normal tibial and fibular sesamoid bones. Normal interphalangeal joint of the great toe. Normal phalanges of the great toe. Normal second through fifth metatarsophalangeal joints. Normal interphalangeal joints and phalanges of the lesser toes. The soft tissue structures are unremarkable. RAD/Foot min 3 Views IMPRESSION: Posterior calcaneal enthesophyte. Otherwise, unremarkable x-ray examination of the left foot. Electronically Signed: Ariel Barraza MD at 14:59 EDT Tel , Service support ,
== END ==
PROVIDERS: PCP Family Medicine; Referring Provider Podiatrist; Visit Provider Podiatrist
DX: M72.2 Plantar fascial fibromatosis (principal); M77.9 Enthesopathy, unspecified
CPT/HCPCS: 73630

== ENCOUNTER 2021-04-02 10:00 | Outpatient (CLI) | payer OTHER, SELFPAY | END 2021-04-02 23:59 | disposition home or self-care (01) | LOC: LABSPEC 10:13 | PROVIDERS: PCP Family Medicine; Visit Provider Student in an Organized Health Care Education/Training Program | DX: R30.0 Dysuria (principal) | CPT/HCPCS: 87086; 87088 ==

== ENCOUNTER → 2021-10-21 | Outpatient (CLI) | payer OTHER, SELFPAY ==
--- NOTE | 2021-10-21 14:40 | MRI_ITS ---
EXAM: MR LEFT LOWER EXTREMITY WITHOUT INTRAVENOUS CONTRAST, ANKLE CLINICAL INDICATION: ACHILLES TENDONITIS,PLANTAR FASCITITIS TECHNIQUE: Multiplanar and multisequence MR images of the left ankle without intravenous contrast. This report was created using [employer] report generation technology. COMPARISON: xr Oct 02 2020 11:00am FINDINGS: LIGAMENTS: ANTERIOR TALOFIBULAR: There is a tear of the anterior talofibular ligament with overlying free fluid. POSTERIOR TALOFIBULAR: Unremarkable. Intact. ANTERIOR TIBIOFIBULAR: Unremarkable. Intact. POSTERIOR TIBIOFIBULAR: Unremarkable. Intact. CALCANEOFIBULAR: Unremarkable. Intact. DELTOID: Unremarkable. Intact. SPRING: Unremarkable. Intact. LISFRANC: Unremarkable. Intact. TENDONS: ACHILLES: There is an enthesophyte involving the posterior superior calcaneus at the site of insertion of the Achilles tendon. There is a calcaneal spur. FLEXOR: Unremarkable. Intact. EXTENSOR: Unremarkable. Intact. PERONEAL: Unremarkable. Intact. TIBIALIS ANTERIOR: Unremarkable. Intact. TIBIALIS POSTERIOR: Unremarkable. Intact. MUSCLES: Unremarkable. Normal bulk and signal. FLUID: Unremarkable. No joint effusion. SINUS TARSI: Unremarkable. Normal fat in the sinus tarsi. TARSAL TUNNEL: Unremarkable. PLANTAR FASCIA: Unremarkable. Intact. CARTILAGE: Unremarkable. No osteochondral lesion. Articular cartilage intact. BONES/JOINTS: Unremarkable. Talar dome intact. No fracture or marrow edema. OTHER SOFT TISSUES: Unremarkable. MRI/Lower Ext Joint Only (Routine) IMPRESSION: 1. There is a tear of the anterior talofibular ligament with overlying free fluid. 2. There is an enthesophyte involving the posterior superior calcaneus at the site of insertion of the Achilles tendon. There is a calcaneal spur. Electronically Signed: David Hutchison MD at 16:12 EDT ,
== END | disposition home or self-care (01) ==
PROVIDERS: PCP Family Medicine; Referring Provider Podiatrist; Visit Provider Podiatrist
DX: M76.60 Achilles tendinitis, unspecified leg (principal); M77.32 Calcaneal spur, left foot; M72.2 Plantar fascial fibromatosis
CPT/HCPCS: 73721

== ENCOUNTER → 2021-11-18 | Outpatient (CLI) | payer OTHER, SELFPAY ==
--- NOTE | 2021-11-18 08:09 | BI_ITS ---
MAMMOGRAPHY - BILATERAL SCREENING REASON FOR EXAM: Female, 51 years old. Routine annual screening examination. PERTINENT HISTORY: Non-contributory. TECHNIQUE: Digital bilateral breast moni (3D mammographic acquisition) in the CC and MLO projections. 2-D mediolateral oblique (MLO) and craniocaudad (CC) views of both breasts were obtained. CAD: Full Field Digital Mammography with Computer Added Detection was performed. COMPARISON: Comparison is made with prior examination dated 07/25/2020 and 01/30/2018. FINDINGS: Breast Composition: The breasts are extremely dense, which lowers the sensitivity of mammography. There are no dominant masses or suspicious calcifications. Stable scattered benign-appearing microcalcifications. No other significant abnormalities are identified. There has been no significant change since the prior study. BI/SCRN MAMM (CAD)W/MONI BILAT IMPRESSION: Stable bilateral screening mammogram. Yearly follow-up mammogram recommended. (A) ASSESSMENT CATEGORY: BIRADS Category 2: Benign. A letter regarding these results will be sent to the patient by the facility within 30 days. Approximately 10% of breast cancers are not detected by mammography. A normal mammogram should not delay biopsy of a clinically suspicious abnormality. [id number] Electronically Signed: Chago Ashby MD at 9:52 EDT ,
== END | disposition home or self-care (01) ==
LOC: OPBI 08:07
PROVIDERS: PCP Family Medicine; Visit Provider Family Medicine
DX: Z12.31 Encounter for screening mammogram for malignant neoplasm of breast (principal)
CPT/HCPCS: 77063; 77067

== ENCOUNTER 2022-04-30 10:30 | Outpatient (RCR) | payer OTHER, SELFPAY ==
--- NOTE | 2022-04-01 08:28 | HP.PTEVAL ---
Patient's Visit Information THEODORE JONES is a 52 year old F referred to Physical Therapy by Dr. Andrea Yang MD with a diagnosis of Achilles Tendonitis on Left. Date of Evaluation: 04/01/22 Physical Therapist: Thea Hess DPT - Visit Plan Frequency: 2x /Week Duration: 4 Weeks Plan: LE and core strength/stabilization, Eccentric, flex, proprioception and ultrasound modality of choice. HEP Given IE: Gastroc stretching on step, towel, ankle DF/PF prior to getting out of bed in the AM, eccentric heel raises - Subjective Patient reports left heel spur for over a year- saw Dr. Marques who put her in a boot for 10 weeks which made it worse- had EPAT which was painful and did not help. She was busy over Mirian and let it go, then she went to see Dr. Yang at [facility]- his ideas are PT for strength and surgery. She has pain erendira in the AM when she gets up and goes down the stairs- so she goes down one at a time or if she goes heel toe. The pain is located along the posterior heel and radiates into the calf. She snow skiis which bothers her. 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 Last Cristian she was playing pickleball and felt it pop- then was doing a lot of walking- tried to run on it and thats when she developed a bump. Worst: 4/10. Agg: morning time and activity. Best: 0/10 Eases: reduce activity, ice. She is wearing an insert which she just started wearing. She does not wear a night splint- it was hard to sleep and did not help at all. She does not stretch prior to getting out of bed in the AM. Describes the pain as shooting. No N/T in the LE. Wears tennis shoes and dansco clogs at work. She does not have an ex routine but wants to get back to being active. PMHx: incontinence- did do PT- it helped a lot. Meds: none - Objective Posture: fair throughout IE. Gait: no deviation noted- good heel/toe pattern. Observation: does have calcification on the posterior achilles. Palpation: tender along achilles and into the distal 1/3 of the gastroc. SLS: 15 sec does have moderate increase muscle activation- mild pes planus. Eccentric Heel Raise: able but increases discomfort. ROM: WFL with the exception of DF: 5 degrees, Strength: Core: fair, Hip: 4+/5, Knee: 5/5 Ankle: 4+/5 in available range. Flex: Gastroc: severe, HS: moderate. P - Goals Goal 1:: Patient will be I with HEP and progression Goal Time Frame: 4-6 Weeks Goal 2:: Patient will SLS for 30 sec without LOB or discomfort Goal Time Frame: 4-6 Weeks Goal 3:: Patient will report recip stairs in the AM Goal Time Frame: 4-6 Weeks Goal 4:: Patient will eccentric HR without pain Goal Time Frame: 4-6 Weeks Goal 5:: Patient will report 80% improvement Goal Time Frame: 4-6 Weeks - Rehabilitation Potential Physical Therapy Diagnosis: Patient presents with hypomobility- decreased ankle ROM, strength, proprioception and flex leading to abnormal gait and dec ability to participate in ADL's Rehabilitation Potential: Good - Anticipated Interventions Patient/Client Instruction: Educate patient on: Benefits of Fitness Program Therapeutic Exercise to Include: Strength training, Endurance training, Balance training, Coordination, Agility training, Body mechanics, Postural training, Flexibilty training, Gait and locomotor training, Neuromotor development, Passive ROM, Active ROM, Dynamic Lumbar Stabilization, Scapular Strength/Stabilization For the Purpose of:: To improve muscle performance and motor function TENS: Yes Cryotherapy (ice pack, ice massage): Yes Thermo therapy (hot pack): Yes Ultrasound (thermal/non thermal): Yes Thank you for the opportunity to evaluate your patient. For Medicare and Medicare HMO plans, please review the plan of care and approve it. It will need to be FAXED BACK to us at [phone] for Medicare purposes. For Medicare only, by signing this I certify the plan of care. Please let me know if there are questions or concerns regarding this plan of care. Physician Signature: Date:
--- NOTE | 2022-04-01 08:33 | HP.PTEVAL ---
Patient's Visit Information THEODORE JONES is a 52 year old F referred to Physical Therapy by Dr. Andrea Yang MD with a diagnosis of Achilles Tendonitis on Left. Date of Evaluation: 04/01/22 Physical Therapist: Thea Hess DPT - Visit Plan Frequency: 2x /Week Duration: 4 Weeks Plan: LE and core strength/stabilization, Eccentric, flex, proprioception and ultrasound modality of choice. HEP Given IE: Gastroc stretching on step, towel, ankle DF/PF prior to getting out of bed in the AM, eccentric heel raises - Subjective Patient reports left heel spur for over a year- saw Dr. Marques who put her in a boot for 10 weeks which made it worse- had EPAT which was painful and did not help. She was busy over Mirian and let it go, then she went to see Dr. Yang at [facility]- his ideas are PT for strength and surgery. She has pain erendira in the AM when she gets up and goes down the stairs- so she goes down one at a time or if she goes heel toe. The pain is located along the posterior heel and radiates into the calf. She snow skiis which bothers her. 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 Last Cristian she was playing pickleball and felt it pop- then was doing a lot of walking- tried to run on it and thats when she developed a bump. Worst: 4/10. Agg: morning time and activity. Best: 0/10 Eases: reduce activity, ice. She is wearing an insert which she just started wearing. She does not wear a night splint- it was hard to sleep and did not help at all. She does not stretch prior to getting out of bed in the AM. Describes the pain as shooting. No N/T in the LE. Wears tennis shoes and dansco clogs at work. She does not have an ex routine but wants to get back to being active. PMHx: incontinence- did do PT- it helped a lot. Meds: none - Objective Posture: fair throughout IE. Gait: no deviation noted- good heel/toe pattern. Observation: does have calcification on the posterior achilles. Palpation: tender along achilles and into the distal 1/3 of the gastroc. SLS: 15 sec does have moderate increase muscle activation- mild pes planus. Eccentric Heel Raise: able but increases discomfort. ROM: WFL with the exception of DF: 5 degrees, Strength: Core: fair, Hip: 4+/5, Knee: 5/5 Ankle: 4+/5 in available range. Flex: Gastroc: severe, HS: moderate. P - Balance/Special Test Scores Lower Extremity Functional Score: 62 - Goals Goal 1:: Patient will be I with HEP and progression Goal Time Frame: 4-6 Weeks Goal 2:: Patient will SLS for 30 sec without LOB or discomfort Goal Time Frame: 4-6 Weeks Goal 3:: Patient will report recip stairs in the AM Goal Time Frame: 4-6 Weeks Goal 4:: Patient will eccentric HR without pain Goal Time Frame: 4-6 Weeks Goal 5:: Patient will report 80% improvement Goal Time Frame: 4-6 Weeks - Rehabilitation Potential Physical Therapy Diagnosis: Patient presents with hypomobility- decreased ankle ROM, strength, proprioception and flex leading to abnormal gait and dec ability to participate in ADL's Rehabilitation Potential: Good - Anticipated Interventions Patient/Client Instruction: Educate patient on: Benefits of Fitness Program Therapeutic Exercise to Include: Strength training, Endurance training, Balance training, Coordination, Agility training, Body mechanics, Postural training, Flexibilty training, Gait and locomotor training, Neuromotor development, Passive ROM, Active ROM, Dynamic Lumbar Stabilization, Scapular Strength/Stabilization For the Purpose of:: To improve muscle performance and motor function TENS: Yes Cryotherapy (ice pack, ice massage): Yes Thermo therapy (hot pack): Yes Ultrasound (thermal/non thermal): Yes Thank you for the opportunity to evaluate your patient. For Medicare and Medicare HMO plans, please review the plan of care and approve it. It will need to be FAXED BACK to us at [phone] for Medicare purposes. For Medicare only, by signing this I certify the plan of care. Please let me know if there are questions or concerns regarding this plan of care. Physician Signature: Date:
--- NOTE | 2022-08-19 17:13 | HP.PT.NRP ---
Patient Information Patient Information: THEODORE JONES was seen in my office for initial evaluation on 04/01/22. The following Plan of Care was established for this patient: POC Established Initial Frequency: 2x /Week Initial Duration: 4 Weeks Anticipated Interventions Patient/Client Instruction: Educate patient on: Benefits of Fitness Program Therapeutic Exercise to Include: Strength training, Endurance training, Balance training, Coordination, Agility training, Body mechanics, Postural training, Flexibilty training, Gait and locomotor training, Neuromotor development, Passive ROM, Active ROM, Dynamic Lumbar Stabilization and Scapular Strength/Stabilization For the Purpose of:: To improve muscle performance and motor function TENS: Yes Cryotherapy (ice pack, ice massage): Yes Thermo therapy (hot pack): Yes Ultrasound (thermal/non thermal): Yes Last Seen Last Seen: This patient was last seen in our office . Pertinent comments regarding their Physical therapy will appear below: Patient is appropriate to be d/c and return to MD for further evaluation as needed At this point I will be discontinuing this patient from physical therapy. I would be happy to see this patient again in the future if found appropriate by the physician. Thank you! Thea Hess, TAMRAT Balance/Gait/Functional tests Balance/Special Test Scores Lower Extremity Functional Score: 62
== END 2022-04-30 19:00 | disposition home or self-care (01) ==
LOC: PT 10:30
PROVIDERS: PCP Family Medicine; Referring Provider Orthopaedic Surgery; Visit Provider Orthopaedic Surgery
DX: M65.28 Calcific tendinitis, other site (principal)
CPT/HCPCS: 97035; 97110; 97161

== ENCOUNTER → 2022-08-28 | Outpatient (CLI) | payer OTHER, SELFPAY | END | disposition home or self-care (01) | LOC: LABSPEC 08:20 | PROVIDERS: PCP Family Medicine; Referring Provider Family Medicine; Visit Provider Family Medicine | DX: R19.7 Diarrhea, unspecified (principal) | CPT/HCPCS: 83630; 87177; 87209; 87493; 87506 ==

== ENCOUNTER → 2023-04-21 | Outpatient (CLI) | payer OTHER, SELFPAY ==
--- OUTSIDE RECORDS SUMMARY | 2023-04-21 19:05 | XMS RPT_ITS | CCD ---
Author Name Unknown Address [address] [place] [address] Organization [facility] Care Team Providers Care Message Clerk Name Role Phone BRANDON STOUT Admitting Unavailable BRANDON STOUT Attending Unavailable EARL SMALLWOOD Primary Care Unavailable Sher FRANCIS Consulting Unavailable JULISSA DAMON Consulting Unavailable EARL SMALLWOOD Consulting Unavailable Problems Problem Classification Problem Date Documented Da te Episodic/Chronic Nonspecific chest pain (2 sources) Chest pain, unspecified; Translations: [CHEST PAIN UNSPECIFIED] Onset: 08-27-2018 Episodic Results Test Name Value Interpretation Reference Range Facil ity Encounters Encounter Date Encounter Type Care Provider Facility Start: 08-27-2018 End: 08-28-2018 Patient encounter procedure BRANDON STOUT Facility:[facility] Payers Date Payer Category Payer Unknown [id number] 1959 Unknown [id number] Summary Purpose Family History No Family History Records Found Advance Directives No Advanced Directives Records Found Additional Source Comments INFORMATION SOURCE (unrecogn ized section and content) FOR RECORDS PERTAINING TO PATIENTS WHO ARE OR HAVE BEEN ENROLLED IN A CHEMICAL DEPENDENCY/SUBSTANCEABUSE PROGRAM, SOME INFORMATION MAY BE OMITTED. This clinical summary was aggregated from multiple sources. Caution should be exercised in using it in the provision of clinical care. This summary normalizes information from multiple sources, and as a consequence, information in this document may materially change the coding, format and clinical context of patient data. In addition, data may be omitted in some cases. CLINICAL DECISIONS SHOULD BE BASED ON THE PRIMARY CLINICAL RECORDS. [facility]. provides no warranty or guarantee of the accuracy or completeness of information in this document.
[2023-04-27 20:08] LABS: Age Gdln ACOG Testing 30-65 (.); HPV APTIMA, High Risk Negative (Negative)
[2023-04-27 21:11] LABS: HPV Reflexed? YES, CHARGE PATIENT
== END | disposition home or self-care (01) ==
LOC: LABSPEC 10:50
PROVIDERS: PCP Family Medicine; Visit Provider Family Medicine
DX: Z12.4 Encounter for screening for malignant neoplasm of cervix (principal)
CPT/HCPCS: 87624; 88175; G0145

== ENCOUNTER → 2023-04-28 | Outpatient (CLI) | payer OTHER, SELFPAY ==
--- NOTE | 2023-04-28 07:35 | BI_ITS ---
MAMMOGRAPHY - BILATERAL SCREENING REASON FOR EXAM: Female, 53 years old. Routine annual screening examination. PERTINENT HISTORY: Non-contributory. TECHNIQUE: Digital bilateral breast moni (3D mammographic acquisition) in the CC and MLO projections. 2-D mediolateral oblique (MLO) and craniocaudad (CC) views of both breasts were obtained. CAD: Full Field Digital Mammography with Computer Added Detection was performed. COMPARISON: Comparison is made with prior examination dated November 18, 2021 and July 25, 2020. FINDINGS: Breast Composition: The breasts are extremely dense, which lowers the sensitivity of mammography. There are no dominant masses or suspicious calcifications. Stable scattered benign-appearing microcalcifications. Stable small bilateral axillary lymph nodes. No other significant abnormalities are identified. There has been no significant change since the prior study. BI/SCRN MAMM (CAD)W/MONI BILAT IMPRESSION: Stable bilateral screening mammogram. Yearly follow-up mammogram recommended. (A) ASSESSMENT CATEGORY: BIRADS Category 2: Benign. A letter regarding these results will be sent to the patient by the facility within 30 days. Approximately 10% of breast cancers are not detected by mammography. A normal mammogram should not delay biopsy of a clinically suspicious abnormality. [id number] Electronically Signed: Chago Ashby MD at 10:41 EDT ,
[2023-04-28 07:42] LABS: Absolute Lymphocyte Count 2.07 X10^3/uL (0.83-4.51); Absolute Neutrophil Count 3.2 X10^3/uL (2.0-7.7); Basophil# 0.06 X10^3/uL; Eosinophil# 0.09 X10^3/uL; Eosinophils% 1.5 % (0-5); Hematocrit 41.4 % (37-47); Lymphocyte # 2.07 X10^3/ul (0.83-4.51); Lymphocyte % 34.6 % (19-41); Mean Corp Hgb Conc 33.8 g/dL (32-36); Mean Corpuscular Volume 94.5 fL (81-99); Mean Platelet Vol. 9.9 fl (6.2-12.0); Monocyte# 0.61 X10^3/uL; Monocyte% 10.2 % (0-10); NRBC Flagged by Analyzer 0 % (0-5); Neutrophil # 3.15 X10^3/uL (2.7-7.7); Neutrophil % 52.5 % (47-70); POSITIVE MORPHOLOGY YES; Platelet Count 311 K/mm3 (150-450); RBC Distribution Width CV 11.7 % (11.6-14.6); RBC Distribution Width SD 40.2 fl (35.1-43.9); Red Blood Count 4.38 M/mm3 (4.2-5.4)
[2023-04-28 07:51] LABS: Differential Indicated SCAN CRITERIA MET
[2023-04-28 08:27] LABS: Color, Urine Yellow (Yellow); Glucose, Dipstick Normal (Normal); Ketone-Dipstick Negative (Negative); Leukocyte Esterase-Dipstick 25 /ul (Negative); Nitrite-Dipstick Negative (Negative); Occult Blood-Urine 10 /ul (Negative); Protein-Dipstick 15 mg/dl (Negative); Urine Bilirubin Dipstick Negative (Negative); Urine Clarity Sl. Cloudy (Clear); Urine Urobilinogen Normal (Normal); Urine pH 6.5 (5.0 - 8.0)
[2023-04-28 08:31] LABS: AST(SGOT) 24 U/L (15-37); Alanine Aminotransfer ALT/SGPT 35 U/L (13-56); Albumin, Serum 3.9 g/dL (3.2-5.0); Alkaline Phosphatase 86 U/L (45-117); Anion Gap 7 (5-15); BUN 14 mg/dL (7-18); BUN/Creat Ratio 17.4 RATIO (10-20); Calcium,Total 9.9 mg/dL (8.5-10.1); Chloride 103 mmol/L (98-107); Cholesterol 229 mg/dL (200); EST Glomerular Filtration Rate 79 mL/min (>60); Est Glom Filt Rate - Afr Amer 96 mL/min (>60); Glucose 99 mg/dL (74-106); High Density Lipoprotein 58 mg/dL; Potassium 3.9 mmol/L (3.5-5.1); Protein, Total 7.9 g/dL (6.4-8.2); Sodium Level 139 mmol/L (136-145); Triglycerides 182 mg/dL; Very Low Density Lipoprotein 36 mg/dL (5-40)
[2023-04-28 09:31] LABS: Reactive Lymphocyte 1+
== END | disposition home or self-care (01) ==
LOC: OPBI 06:35
PROVIDERS: PCP Family Medicine; Referring Provider Family Medicine; Visit Provider Family Medicine
DX: Z12.31 Encounter for screening mammogram for malignant neoplasm of breast (principal); Z01.419 Encounter for gynecological examination (general) (routine) without abnormal findings; R30.0 Dysuria
CPT/HCPCS: 36415; 77063; 77067; 80053; 80061; 81002; 85025

== ENCOUNTER → 2023-05-23 | Outpatient (CLI) | payer OTHER, SELFPAY ==
[2023-05-23 15:43] LABS: Absolute Neutrophil Count 4.9 X10^3/uL (2.0-7.7); Basophil# 0.06 X10^3/uL; Basophil% 0.7 % (0-1); Eosinophil# 0.11 X10^3/uL; Eosinophils% 1.4 % (0-5); Hematocrit 40.4 % (37-47); Hemoglobin 13.3 g/dL (12.0-15.0); Lymphocyte % 27.4 % (19-41); Mean Corp Hgb Conc 32.9 g/dL (32-36); Mean Corpuscular Hgb 30.9 pg (27.0-32.0); Mean Platelet Vol. 10.4 fl (6.2-12.0); Monocyte# 0.72 X10^3/uL; NRBC Flagged by Analyzer 0 % (0-5); Neutrophil # 4.92 X10^3/uL (2.7-7.7); Neutrophil % 61.3 % (47-70); Platelet Count 346 K/mm3 (150-450); RBC Distribution Width CV 11.8 % (11.6-14.6); RBC Distribution Width SD 40.5 fl (35.1-43.9)
[2023-05-23 16:15] LABS: Vitamin B12 359 pg/mL (211-911)
[2023-05-23 16:24] LABS: Iron 82 ug/dL (50-170); Thyroid Stim Hormone (TSH) 2.35 uIU/mL (0.358-3.74)
== END | disposition home or self-care (01) ==
LOC: BFHLAB 14:04
PROVIDERS: PCP Nurse Practitioner Family; Referring Provider Nurse Practitioner Family; Visit Provider Nurse Practitioner Family
DX: R53.83 Other fatigue (principal)
CPT/HCPCS: 36415; 82306; 82607; 83540; 84443; 85025; 87077; 87086; 87088; 87186

== ENCOUNTER → 2024-12-05 | Outpatient (CLI) | payer OTHER, SELFPAY | END | disposition home or self-care (01) | LOC: LABSPEC 15:47 | PROVIDERS: PCP Nurse Practitioner Family; Referring Provider Nurse Practitioner Family; Visit Provider Nurse Practitioner Family | DX: N39.0 Urinary tract infection, site not specified (principal) ==

== ENCOUNTER → 2024-12-06 | Outpatient (CLI) | payer OTHER, SELFPAY | END | disposition home or self-care (01) | LOC: LAB 15:14 → LABSPEC 15:15 | PROVIDERS: PCP Nurse Practitioner Family; Visit Provider Nurse Practitioner Family | DX: N39.0 Urinary tract infection, site not specified (principal) | CPT/HCPCS: 87086 ==

== ENCOUNTER → 2025-01-11 | Outpatient (CLI) | payer OTHER, SELFPAY ==
--- OUTSIDE RECORDS SUMMARY | 2025-01-11 11:52 | XMS RPT_ITS | CCD ---
Author Organization [facility] Care Team Providers Care Cath Laboratory Technician Name Role Phone BRANDON STOUT Admitting Unavailable BRANDON STOUT Attending Unavailable AERL ABBOTT Primary Care Unavailable Sher FRANCIS Consulting Unavailable JULISSA DAMON Consulting Unavailable EARL ABBOTT Consulting Unavailable Dr. Jennifer Combs Primary Care Provider [phone]. Jennifer Combs Referring Provider Ava SHAH, PABLO Flor Attending Provider Jennifer Combs MD Primary Care Provider JENNIFER COMBS Primary Care Unavailable Nely hCapman Referring Unavailable Nely Chapman Attending Unavailable Nely Chapman Primary Care Unavailable Nely Chapman Attending Unavailable Nely Chapman Primary Care Unavailable Medications Current Medications Medication Drug Class(es) Dates Sig (Normalized) Sig (Original) Corinna (Nk) (6 sources) Start: 07-03-2020 Corinna (Nk) A ctive July 03, 2020 12:00am Completed/Discontinued Medications Medication Drug Class(es) Dates Sig (Normalized) Sig (Original) acetaminophen 325 mg / HYDROcodone bitartrate 5 mg oral tablet (6 sources) Opioid Agonist Start: 09-28-2018 End: 09-30-2018 take 1 tablet by mouth every four hours as needed Hydrocodone-Acetam inophen Discontinued 1 TABLET PO EVERY 4 HOURS NEEDED 8 2 September 28, 2018 September 30, 2018 12:08am amoxicillin 875 mg / clavulanate 125 mg oral tablet (6 sources) Penicillin-class Antibacterial Start: 02-11-2020 End: 02-16-2020 take 875 mg by mouth every twelve hours Amoxicillin-Pot Clavulanate Discontinued 875 MG PO Q12H 10 5 February 11, 2020 1:00am February 16, 2020 1:03am cephalexin 500 mg oral capsule (6 sources) Cephalosporin Antibacterial Start: 01-08-2018 End: 09-25-2018 take 1 capsule by mouth every six hours Cephalexin (Keflex) 500 mg capsule Discontinued 500 MG PO EVERY 6 HOURS January 08, 2018 1:00am September 25, 2018 1:29pm Problems Active Problems Problem Classification Problem Date Documented Date Episodic/Chronic Abdominal hernia (6 sources) Umbilical hernia; Translations: [Umbilical hernia without obstruction or gangrene] 09-25-2018 Episodic Biliary tract disease (6 sources) Calculus of gallbladder with cholecystitis; Translations: [Calculus of gallbladder with chronic cholecystitis without obstruction] 09-25-2018 Episodic Genitourinary symptoms and ill-defined conditions (6 sources) Genuine stress incontinence; Translations: [Stress incontinence (female) (male)] 07-10-2020 Chronic Genitourinary symptoms and ill-defined conditions (6 sources) Dysfunctional voiding of urine; Translations: [Other specified disorders of urinary system] 07-10-2020 Episodic Nonspecific chest pain (2 sources) Chest pain, unspecified; Translations: [CHEST PAIN UNSPECIFIED] Onset: 08-27-2018 Episodic Open wounds of extremities (12 sources) Dog bite of hand; Translations: [Open bite of right hand, initial encounter] 02-12-2020 Episodic Urinary tract infections (1 source) Urinary tract infection, site not specified; Translations: [Urinary tract infection, site not specified] Onset: 12-19-2024 Episodic Past or Other Problems Problem Classification Problem Date Documented Da te Episodic/Chronic Unclassified (6 sources) HISTORY OF KIDNEY STONE REMOVAL 09-02-2021 Results Test Name Value Interpretation Reference Range Facility Urine Cultureon 12-07-2024 [facility] Culture exhibits no growth. Normal [facility] Comment on above: Performed By: #### M 100.2209 #### [facility] [address] [place], [address] CT ABD/PEL W IVCONon 024 CT ABD/PEL W IVCON * * *Final Report* * * DATE OF EXAM: Jul 22 2023 3:28PM [facility] 0530 - CT ABD/PEL W IVCON / PROCEDURE REASON: R10.12 * * * * Physician Interpretation * * * * EXAMINATION: CT ABDOMEN AND PELVIS WITH IV CONTRAST CLINICAL HISTORY: Left-sided abdominal pain TECHNIQUE: CT of the abdomen and pelvis was performed using standard technique, scanning from just above the dome of the diaphragm to the symphysis pubis. MQ: CTAP_3 Contrast: IV: 100 ml of Omnipaque 300 : ml of CT Radiation dose: Integrated Dose-length product (DLP) for this visit = 468 mGy*cm. CT Dose Reduction Employed: Automated exposure control(AEC) and iterative recon COMPARISON: None. RESULT: Liver: No mass. Normal morphology. Biliary: No bile duct dilation. Gallbladder is absent. Spleen: No mass. No splenomegaly. Pancreas: No mass or duct dilation. Adrenals: No mass. Kidneys: No mass, calculus or hydronephrosis. GI tract: No dilation or wall thickening. Normal appendix. Lymph nodes: No abdominal or pelvic lymphadenopathy. Mesentery/Peritoneum : No ascites or mass. Retroperitoneum: No mass. Vasculature: - Abdominal aorta and iliac arteries: No aneurysm. - Celiac and SMA: Patent without stenosis. - Portal venous system (SMV, splenic vein, portal vein and branches): Patent. - Hepatic veins: Patent. Pelvis: No mass, ascites or fluid collection. Multiple phleboliths in the pelvis. The bladder has a normal appearance. Bones/Soft Tissues: Diastases of the rectus abdominis muscles. Mild degenerative disease of the lumbar spine. Lower thorax: No pleural effusion or consolidation Localizer images: No additional findings. 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 Transcribe Date/Time: Jul 29 2023 8:09A Dictated by : JORGE A CONTRERAS MD This examination was interpreted and the report reviewed and electronically signed by: JORGE A CONTRERAS MD on Jul 29 2023 8:16AM EST [id number] CN Normal [facility] KIDNEY/BLADDERon 06-21-19 24 US KIDNEY/BLADDER * * *Final Report* * * DATE OF [facility]AM: Jun 21 2023 7:27AM [facility]/BLADDER / PROCEDURE REASON: R10.9 * * * * Physician Interpretation * * * * EXAMINATION: RENAL ULTRASOUND CLINICAL HISTORY: Left flank pain TECHNIQUE: Sonography of the kidneys and urinary bladder was performed. Images were obtained and stored in a permanent archive and interpreted remotely. MQ: UR_1 COMPARISON: None RESULT: Right Kidney: -Renal length: 11.1 cm -Parenchyma: Normal parenchymal echogenicity. Normal parenchymal thickness. -Collecting system: No hydronephrosis. -Calculus: No echogenic, shadowing calculus. -Lesion: None. Left Kidney: -Renal length: 11.6 cm -Parenchyma: Normal parenchymal echogenicity. Normal parenchymal thickness. -Collecting system: No hydronephrosis. -Calculus: No echogenic, shadowing calculus. -Lesion: None. Bladder: Normal sonographic appearance. Prevoid bladder volume measures 382 mL. Bilateral ureteral jets visualized. Postvoid bladder volume measures 7 mL. IMPRESSION: NORMAL SONOGRAPHIC APPEARANCE OF KIDNEYS AND BLADDER. Admitting Interviewer: ROMEL Transcribe Date/Time: Jun 21 2023 2:47P Dictated by : STEPH CLAUDIO MD This examination was interpreted and the report reviewed and electronically signed by: STEPH CLAUDIO MD on Jun 21 2023 2:48PM [facility] [id number] CN Normal [facility] US Kidney - bilateral and Ur inary bladderon 06-21-2023 IMPRESSION: NORMAL SONOGRAPHIC APPEARANCE OF KIDNEYS AND BLADDER. Admitting Interviewer: [facility] Transcribe Date/Time: Jun 21 2023 2:47P Dictated by : STEPH CLAUDIO MD This examination was interpreted and the report reviewed and electronically signed by: STEPH CLAUDIO MD on Jun 21 2023 2:48PM [facility] DIVISION OF RADIOLOGY * * *Final Report* * * DATE OF EXAM: Jun 21 2023 7:27AM [facility]IDNEY/BLADDER / PROCEDURE REASON: R10.9 * * * * Physician Interpretation * * * * EXAMINATION: RENAL ULTRASOUND CLINICAL HISTORY: Left flank pain TECHNIQUE: Sonography of the kidneys and urinary bladder was performed. Images were obtained and stored in a permanent archive and interpreted remotely. MQ: UR_1 COMPARISON: None RESULT: Right Kidney: -Renal length: 11.1 cm -Parenchyma: Normal parenchymal echogenicity. Normal parenchymal thickness. -Collecting system: No hydronephrosis. -Calculus: No echogenic, shadowing calculus. -Lesion: None. Left Kidney: -Renal length: 11.6 cm -Parenchyma: Normal parenchymal echogenicity. Normal parenchymal thickness. -Collecting system: No hydronephrosis. -Calculus: No echogenic, shadowing calculus. -Lesion: None. Bladder: Normal sonographic appearance. Prevoid bladder volume measures 382 mL. Bilateral ureteral jets visualized. Postvoid bladder volume measures 7 mL. DIVISION OF RADIOLOGY Provider, [facility] [place] - 06/21/2023 * * *Final Report* * * DATE OF EXAM: Jun 21 2023 7:27AM [facility] 1055 - US KIDNEY/BLADDER / PROCEDURE REASON: R10.9 * * * * Physician Interpretation * * * * EXAMINATION: RENAL ULTRASOUND CLINICAL HISTORY: Left flank pain TECHNIQUE: Sonography of the kidneys and urinary bladder was performed. Images were obtained and stored in a permanent archive and interpreted remotely. MQ: UR_1 COMPARISON: None RESULT: Right Kidney: -Renal length: 11.1 cm -Parenchyma: Normal parenchymal echogenicity. Normal parenchymal thickness. -Collecting system: No hydronephrosis. -Calculus: No echogenic, shadowing calculus. -Lesion: None. Left Kidney: -Renal length: 11.6 cm -Parenchyma: Normal parenchymal echogenicity. Normal parenchymal thickness. -Collecting system: No hydronephrosis. -Calculus: No echogenic, shadowing calculus. -Lesion: None. Bladder: Normal sonographic appearance. Prevoid bladder volume measures 382 mL. Bilateral ureteral jets visualized. Postvoid bladder volume measures 7 mL. IMPRESSION IMPRESSION: NORMAL SONOGRAPHIC APPEARANCE OF KIDNEYS AND BLADDER. Admitting Interviewer: [facility] Transcribe Date/Time: Jun 21 2023 2:47P Dictated by : STEPH CLAUDIO MD This examination was interpreted and the report reviewed and electronically signed by: STEPH CLAUDIO MD on Jun 21 2023 2:48PM EST [facility] Radiology Study observation (narrative) Juanis cintron [facility] US Kidney - bilateral and Ur inary bladderOrdered By: Ccf Provider on 06-21-2023 [facility] Absolute lymphocyte countOrd ered By: Nely Chapman on 05-23-2023 Lymphocytes Auto (Unsp spec) [#/Vol] 2.20 10*3/uL 0.83-4.51 [facility] Automated lymphocyte count a s percentage of total leukocytesOrdered By: Nely Chapman on 05-23-2023 Lymphocytes/100 WBC Auto (Unsp spec) 27.4 % 19-41 [facility] Basophil percentageOrdered B y: Nely Chapman on 05-23-2023 Basophils/100 WBC (Bld) 0.7 % 0-1 [facility] Eosinophils/100 WBC (Bld) 1.4 % 0-5 [facility] Hemoglobin (Bld) [Mass/Vol] 13.3 g/dL 12.0-15.0 [facility] Monocytes/100 WBC (Bld) 9.0 % 0-10 [facility] Neutrophils (Bld) [#/Vol] 4.9 10*3/uL 2.0-7.7 [facility] Neutrophils/100 WBC (Bld) 61.3 % 47-70 [facility] WBC (Bld) [#/Vol] 8.0 10*3/uL 4.4-11.0 [facility] Culture, urineOrdered By: Ra doug Chapman on 05-23-2023 Bacteria identified Cx Nom (U) Streptococcus agalactiae (B) [facility] Determination of erythrocyte mean corpuscular volume (MCV)Ordered By: Nely Chapman on 05-23-2023 MCV (RBC) [Entitic vol] 94.0 fL 81-99 [facility] Erythrocyte distribution wid th ratioOrdered By: Nely Chapman on 05-23-2023 Erythrocyte distribution width (RBC) [Ratio] 11.8 % 11.6-14.6 [facility] Erythrocyte distribution wid th standard deviationOrdered By: Nely Chapman on 05-23-2023 Erythrocyte distribution width (RBC) [Entitic vol] 40.5 fL 35.1-43.9 [facility] Hematocrit Auto (Bld) [Volum e fraction]Ordered By: Nely Chapman on 05-23-2023 Hematocrit (Bld) [Volume fraction] 40.4 % 37-47 [facility] Immature granulocytes/100 WB C Auto (Bld)Ordered By: Nely Chapman on 05-23-2023 Immature granulocytes/100 WBC (Bld) 0.200 % 0.0-0.9 [facility] Comment on above: IG% - Immature Granu locytes (promyelocytes, myelocytes and metamyelocytes) > 1% indicates that a LEFT SHIFT is Present. Iron measurement (mass/mass) Ordered By: Nely Chapman on 05-23-2023 Iron (Unsp spec) [Mass/Mass] 82 ug/dL 50-170 [facility] - Chemistry and C hemistry - challengeOrdered By: Nely Chapman on 05-23-2023 Cobalamin (Vitamin B12) [Mass/Vol] 359 pg/mL 211-911 [facility] - Hematology and Cell countsOrdered By: Nely Chapman on 05-23-2023 MCH (RBC) [Entitic mass] 30.9 pg 27.0-32.0 [facility] MCHC (RBC) [Mass/Vol] 32.9 g/dL 32-36 [facility] Nucleated RBC/100 WBC (Bld) [Ratio] 0 % 0-5 [facility] Platelet mean volume (Bld) [Entitic vol] 10.4 fL 6.2-12.0 [facility] Platelets (Bld) [#/Vol] 346 10*3/uL 150-450 [facility] No Panel InformationOrdered By: Nely Chapman on 05-23-2023 Vitamin D 25-Hydroxy 27.0 ng/mL [facility] Comment on above: Vitamin D 25(OH) Sta tus Range Deficiency <20 ng/mL (50nmol/L) Insufficiency 20 - 30 ng/mL (50 - 75 nmol/L) Sufficiency 30 - 100 ng/mL (75 - 250 nmol/L) Toxicity >100 ng/mL (>250 nmol/L) RBC Auto (Bld) [#/Vol]Ordere d By: Nely Chapman on 05-23-2023 RBC (Bld) [#/Vol] 4.30 10*6/uL 4.2-5.4 [facility] Serum or plasma thyroid stim ulating hormone (TSH) measurement (units/volume)Ordered By: Nely Chapman on 05-23-2023 TSH Qn 2.35 uIU/mL 0.358-3.74 [facility] Absolute lymphocyte countOrd ered By: Jennifer Combs on 04-28-2023 Lymphocytes Auto (Unsp spec) [#/Vol] 2.07 10*3/uL 0.83-4.51 [facility] Automated lymphocyte count a s percentage of total leukocytesOrdered By: Jennifer Combs on 04-28-2023 Lymphocytes/100 WBC Auto (Unsp spec) 34.6 % 19-41 [facility] Basophil percentageOrdered B y: Jennifer Combs on 04-28-2023 Basophils/100 WBC (Bld) 1.0 % 0-1 [facility] Bilirubin [Mass/Vol] 0.50 mg/dL 0.20-1.00 [facility] Comment on above: For patients on eltr ombopag therapy, use of Dimension [place] TBIL is not recommended. Chloride [Moles/Vol] 103 mmol/L 98-107 [facility] Cholesterol [Mass/Vol] 229 mg/dL <200 [facility] Comment on above: <200 mg/dL Desirable 200-240 mg/dL Borderline >240 mg/dL High Risk Eosinophils/100 WBC (Bld) 1.5 % 0-5 [facility] Glucose [Mass/Vol] 99 mg/dL 74-106 [facility] Hemoglobin (Bld) [Mass/Vol] 14.0 g/dL 12.0-15.0 [facility] Monocytes/100 WBC (Bld) 10.2 % 0-10 [facility] Neutrophils (Bld) [#/Vol] 3.2 10*3/uL 2.0-7.7 [facility] Neutrophils/100 WBC (Bld) 52.5 % 47-70 [facility] Potassium [Moles/Vol] 3.9 mmol/L 3.5-5.1 [facility] Protein [Mass/Vol] 7.9 g/dL 6.4-8.2 [facility] Sodium [Moles/Vol] 139 mmol/L 136-145 [facility] Triglyceride [Mass/Vol] 182 mg/dL <199 [facility] Comment on above: The drugs N-Acetylcy steine and Metamizole may falsely depress this assay.Serum Triglycerides Reference Interval Normal <150 mg/dL Borderline high 150 - 199 mg/dL High 200 - 499 mg/dL Very High > or = 500 mg/dL WBC (Bld) [#/Vol] 6.0 10*3/uL 4.4-11.0 [facility] Bilirubin Test strip Ql (U)O rdered By: Jennifer Combs on 04-28-2023 Bilirubin Ql (U) Negative Negative [facility] Determination of erythrocyte mean corpuscular volume (MCV)Ordered By: Jennifer Combs on 04-28-2023 MCV (RBC) [Entitic vol] 94.5 fL 81-99 [facility] Erythrocyte distribution wid th ratioOrdered By: Jennifer Lauryn on 04-28-2023 Erythrocyte distribution width (RBC) [Ratio] 11.7 % 11.6-14.6 [facility] Erythrocyte distribution wid th standard deviationOrdered By: Grafton Lauryn on 04-28-2023 Erythrocyte distribution width (RBC) [Entitic vol] 40.2 fL 35.1-43.9 [facility] Hematocrit Auto (Bld) [Volum e fraction]Ordered By: Jennifer Combs on 04-28-2023 Hematocrit (Bld) [Volume fraction] 41.4 % 37-47 [facility] Immature granulocytes/100 WB C Auto (Bld)Ordered By: Jennifer Combs on 04-28-2023 Immature granulocytes/100 WBC (Bld) 0.200 % 0.0-0.9 [facility] Comment on above: IG% - Immature Granu locytes (promyelocytes, myelocytes and metamyelocytes) > 1% indicates that a LEFT SHIFT is Present. Ketones Test strip Ql (U)Ord ered By: Jennifer Combs on 04-28-2023 Ketones Ql (U) Negative Negative [facility] - Chemistry and C hemistry - challengeOrdered By: Jennifer Combs on 04-28-2023 Albumin/Globulin [Mass ratio] 1.0 {ratio} 0.9-2.4 [facility] ALP [Catalytic activity/Vol] 86 U/L 45-117 [facility] ALT [Catalytic activity/Vol] 35 U/L 13-56 [facility] Cholesterol in HDL [Mass/Vol] 58 mg/dL >40 [facility] Comment on above: The drugs N-Acetylcy steine and Metamizole may falsely depress this assay. Reference Range HDL <40 mg/dL Low HDL Cholesterol HDL >or= 60 mg/dL High HDL Cholesterol Cholesterol in LDL [Mass/Vol] 135 mg/dL 0-130 [facility] CO2 [Moles/Vol] 29.0 mmol/L 21.0-32.0 [facility] Globulin (S) [Mass/Vol] 4.0 g/dL 2.2-4.2 [facility] Urea nitrogen/Creatinine [Mass ratio] 17.4 mg/mg 10-20 [facility] - Hematology and Cell countsOrdered By: Jennifer Combs on 04-28-2023 MCH (RBC) [Entitic mass] 32.0 pg 27.0-32.0 [facility] MCHC (RBC) [Mass/Vol] 33.8 g/dL 32-36 [facility] Nucleated RBC/100 WBC (Bld) [Ratio] 0 % 0-5 [facility] Platelet mean volume (Bld) [Entitic vol] 9.9 fL 6.2-12.0 [facility] Platelets (Bld) [#/Vol] 311 10*3/uL 150-450 [facility] Nitrite Test strip Ql (U)Ord ered By: Jennifer Combs on 04-28-2023 Nitrite Ql (U) Negative Negative [facility] No Panel InformationOrdered By: Jennifer Combs on 04-28-2023 Estimated GFR (MDRD) Amer 96 mL/min >60 [facility] Comment on above: GFR Calc Estimated GFR (MDRD) Non-Af Amer 79 mL/min >60 [facility] Comment on above: Non- GFR Calc Reactive Lymphocytes 1+ [facility] VLDL Cholesterol 36 mg/dL 5-40 [facility] Protein Test strip Ql (U)Ord ered By: Jennifer Combs on 04-28-2023 Protein Ql (U) 15 mg/dl Negative [facility] RBC Auto (Bld) [#/Vol]Ordere d By: Jennifer Combs on 04-28-2023 RBC (Bld) [#/Vol] 4.38 10*6/uL 4.2-5.4 [facility] Serum or plasma calcium genaro urement (mass/volume)Ordered By: Jennifer Combs on 04-28-2023 Calcium [Mass/Vol] 9.9 mg/dL 8.5-10.1 [facility] Serum or plasma creatinine m easurement (mass/volume)Ordered By: Jennifer Combs on 04-28-2023 Creatinine [Mass/Vol] 0.80 mg/dL 0.55-1.02 [facility] Comment on above: The validity of the calculated GFR & GFRAA in patients over 70 years has not been determined. Clinical correlation is essential. Serum or plasma urea nitroge n measurement (mass/volume)Ordered By: Jennifer Combs on 04-28-2023 Urea nitrogen [Mass/Vol] 14 mg/dL 7-18 [facility] Thin prep Papanicolaou smear with manual screeningOrdered By: Jennifer Combs on 04-28-2023 Thin prep Papanicolaou smear with manual screening 3.9 g/dL 3.2-5.0 [facility] Thin prep Papanicolaou smear with manual screening 24 U/L 15-37 [facility] Thin prep Papanicolaou smear with manual screening 7 5-15 [facility] Urine blood detectionOrdered By: Jennifer Combs on 04-28-2023 RBC Ql (U) 10 /ul Negative [facility] Urine clarityOrdered By: Ludwin Combs on 04-28-2023 Clarity (U) Sl. Cloudy Clear [facility] Urine color determinationOrd ered By: Jennifer Combs on 04-28-2023 Color (U) Yellow Yellow [facility] Urine glucose detectionOrder ed By: Jennifer Combs on 04-28-2023 Glucose Ql (U) Normal mg/dl Normal [facility] Urine leukocyte esterase det ection by dipstickOrdered By: Jennifer Combs on 04-28-2023 Leukocyte esterase Test strip Ql (U) 25 /ul Negative [facility] Urine pHOrdered By: Jennifer fields on 04-28-2023 pH (U) 6.5 [pH] 5.0 - 8.0 [facility] Urine specific gravity measu rementOrdered By: Jennifer Combs on 04-28-2023 Specific gravity (U) [Rel density] 1.020 1.002-1.030 [facility] Urine urobilinogen measureme ntOrdered By: Jennifer Combs on 04-28-2023 Urobilinogen Ql (U) Normal mg/dl Normal [facility] Cervical or vaginal specimen microscopic examination by liquid based cytology (reportOrdered By: Jennifer Combs on 04-21-2023 Cytology report Cyto stain.thin prep Doc (Cvx/Vag) Comment . [facility] Comment on above: Criteria not met, HP V Genotype not performed.Performed at: = - [address] [id number] Director: Li Rivera MD, Phone: [phone] at: [address] [id number] Director: Li Rivera MD, Phone: [phone] Cervical or vagninal specime n microscopic examination by cytology stain (reported asOrdered By: Jennifer Combs on 04-21-2023 Cytology report Cyto stain Doc (Cvx/Vag) Comment . [facility] Comment on above: The Pap smear is a s creening test designed to aid in thedetection of premalignant and malignant conditions of theuterine cervix. It is not a diagnostic procedure andshould not be used as the sole means of detecting cervicalcancer. Both false-positive and false-negative reports dooccur. Laboratory - CytologyOrdered By: Jennifer Combs on 04-21-2023 Survey Research Professor Cyto stain Nom (Cvx/Vag) [ID] Comment . [facility] Comment on above: Jamal Henderson, Cytot echnologist (ASCP) Laboratory - Miscellaneous t estsOrdered By: Jennifer Combs on 04-21-2023 Service comment (Unsp spec) [Interp] . . [facility] No Panel InformationOrdered By: Jennifer Combs on 04-21-2023 Pap Smear Additional Comments 30-65 . [facility] Thin prep Papanicolaou smear with manual screeningOrdered By: Jennifer Combs on 04-21-2023 Thin prep Papanicolaou smear with manual screening Comment . [facility] Comment on above: NEGATIVE FOR INTRAEP ITHELIAL LESION OR MALIGNANCY. This liquid based Th inPrep(R) pap test was screened withthe use of an image guided system. Clostridium difficile detect ion by polymerase chain reactionOrdered By: Jennifer Combs on 08-28-2022 C. difficile DNA OTIS+probe Ql (Unsp spec) [facility] Stool enteric pathogen panel by probe and target amplification methodOrdered By: Jennifer Combs on 08-28-2022 Gastrointestinal pathogens panel OTIS+probe (Stl) [facility] Stool lactoferrin detection by immunoassayOrdered By: Jennifer Combs on 08-28-2022 Lactoferrin IA Ql (Stl) [facility] Laboratory - Microbiology an d Antimicrobial susceptibilityon 09-24-2021 SARS-CoV-2 (COVID-19) RNA OTIS+probe Ql (Unsp spec) Detected [facility] Work Phone: No Panel Informationon 09-24 POC Nasal Swab Influenza A,B Not detected [facility] Work Phone: POC Nasal Swab RSV Not detected [facility] Work Phone: CBC with DIFFERENTIALon 08-08 Basophils (Bld) [#/Vol] 0.04 10*3/uL Normal <=0.70 [facility] Comment on above: Performed By: #### 5 7021-8 #### [facility] [address] [place] [address] Rn Immunology - Gertrude Rios CLIA [id number] Basophils/100 WBC (Bld) 0.7 % Normal <=2.0 [facility] Comment on above: Performed By: #### 5 7021-8 #### [facility] [address] [place] [address] Rn Immunology - Gertrude Rios CLIA [id number] Eosinophils (Bld) [#/Vol] 0.09 10*3/uL Normal <=0.70 [facility] Comment on above: Performed By: #### 5 7021-8 #### [facility] [address] [address] [place] [address] Rn Immunology - Gertrude [place] [id number] Eosinophils/100 WBC (Bld) 1.5 % Normal <=10.0 [facility] Comment on above: Performed By: #### 5 7021-8 #### [facility] [address] [place] [address] Rn Immunology - Gertrude [place] [id number] Erythrocyte distribution width (RBC) [Entitic vol] 38.5 fL Normal 36.4-46.3 [facility] Comment on above: Performed By: #### 5 7021-8 #### [place] [address] [place] [address] Rn Immunology - Gertrude [place] [id number] Hematocrit (Bld) [Volume fraction] 36.4 % Low 37.0-47.0 [facility] Comment on above: Performed By: #### 5 7021-8 #### [facility] [address] [place] [address] Rn Immunology - Gertrude [place] [id number] Hemoglobin (Bld) [Mass/Vol] 12.4 g/dL Normal 12.0-16.0 [facility] Comment on above: Performed By: #### 5 7021-8 #### [facility] [address] [place] [address] Rn Immunology - Gertrude [place] [id number] Immature granulocytes (Bld) [#/Vol] 0.01 10*3/uL Normal <=0.10 [facility] Comment on above: Performed By: #### 5 7021-8 #### [facility] [address] [place] [address] Rn Immunology - Gertrude [place] [id number] Immature granulocytes/100 WBC (Bld) 0.20 % Normal <=1.50 [facility] Comment on above: Performed By: #### 5 7021-8 #### [facility] [address] [place] [address] Rn Immunology - Gertrude [place] [id number] Lymphocytes (Bld) [#/Vol] 1.86 10*3/uL Normal 1.20-3.40 [facility] Comment on above: Performed By: #### 5 7021-8 #### [facility] [address] [place] [address] Rn Immunology - Gertrude [place] [id number] Lymphocytes/100 WBC (Bld) 30.4 % Normal 20.0-40.0 [facility] Comment on above: Performed By: #### 5 7021-8 #### [place] [address] [place] [address] Rn Immunology - Gertrude [place] [id number] MCH (RBC) [Entitic mass] 32.1 pg High 27.0-31.0 [facility] Comment on above: Performed By: #### 5 7021-8 #### [address] [place] [address] Rn Immunology - Gertrude [place] [id number] MCHC (RBC) [Mass/Vol] 34.1 g/dL Normal 32.0-36.0 [facility] Comment on above: Performed By: #### 5 7021-8 #### [place] [address] [place] [address] Rn Immunology - Gertrude [place] [id number] MCV (RBC) [Entitic vol] 94.3 fL Normal 80.0-100.0 [facility] Comment on above: Performed By: #### 5 7021-8 #### [place] [address] [place] [address] Rn Immunology - Gertrude [place] [id number] Monocytes (Bld) [#/Vol] 0.53 10*3/uL Normal 0.10-0.60 [facility] Comment on above: Performed By: #### 5 7021-8 #### [place] [address] [place] [address] Rn Immunology - Gertrude [place] [id number] Monocytes/100 WBC (Bld) 8.7 % High <=8.0 [facility] Comment on above: Performed By: #### 5 7021-8 #### [place] [address] [facility]. [place] [address] Rn Immunology - Gertrude [place] [id number] Neutrophils (Bld) [#/Vol] 3.59 10*3/uL Normal 1.40-6.50 [facility] Comment on above: Performed By: #### 5 7021-8 #### [address] [place] [address] Rn Immunology - Gertrude [place] [id number] Neutrophils/100 WBC (Bld) 58.5 % Normal 50.0-70.0 [facility] Comment on above: Performed By: #### 5 7021-8 #### [address] [place] [address] Rn Immunology - Gertrude [place] [id number] Nucleated RBC (Bld) [#/Vol] 0.00 10*3/uL Normal <=0.10 [facility] Comment on above: Performed By: #### 5 7021-8 #### [address] [place] [address] Rn Immunology - Gertrude [place] [id number] Platelet mean volume (Bld) [Entitic vol] 10.3 fL Normal 9.0-13.0 [facility] Comment on above: Performed By: #### 5 7021-8 #### [address] [place] [address] Rn Immunology - Gertrude [place] [id number] Platelets (Bld) [#/Vol] 224 10*3/uL Normal 130-400 [facility] Comment on above: Performed By: #### 5 7021-8 #### [address] [place] [address] Rn Immunology - Gertrude [place] [id number] RBC (Bld) [#/Vol] 3.86 10*6/uL Low 4.00-6.30 [facility] Comment on above: Performed By: #### 5 7021-8 #### [facility] [address] [facility] [place] [address] Rn Immunology - Gertrude FRASER [id number] WBC (Bld) [#/Vol] 6.12 10*3/uL Normal 4.80-10.80 [facility] Comment on above: Performed By: #### 5 7021-8 #### [facility] [address] [facility]. [place] [address] Rn Immunology - Gertrude FRASER [id number] CHEST AP PORTABLEon 08-28-19 19 CHEST AP PORTABLE EXAM: CHEST AP PORTABLE HISTORY: CHEST PAIN, UNSPECIFIED COMPARISON: None. TECHNIQUE: Portable chest was done at 7:12 PM. FINDINGS: Trachea is midline. Mediastinum is not widened. Heart size is unremarkable. The lungs are clear and well aerated. No effusion or nodule or pneumothorax is noted. IMPRESSION: Nonacute portable chest. Normal [facility] COMPREHENSIVE METABOLIC PANE Edward 08-27-2018 Albumin [Mass/Vol] 3.6 g/dL Normal 3.4-5.0 [facility] Comment on above: Performed By: #### 1 9123-9, 71849-8 #### [facility] [address] [facility]. [place] [address] Rn Immunology - Gertrude FRASER [id number] ALP [Catalytic activity/Vol] 66 U/L Normal 50-136 [facility] Comment on above: Performed By: #### 1 9123-9, 77234-7 #### [facility] [address] [facility]. [place] [address] Rn Immunology - Gertrude FRASER [id number] ALT [Catalytic activity/Vol] 48 U/L Normal 14-59 [facility] Comment on above: Performed By: #### 1 9123-9, 48335-0 #### [facility] [address] [facility]. [place] [address] Rn Immunology - Gertrude FRASER [id number] Anion gap [Moles/Vol] 6.0 mmol/L Normal <=15.0 [facility] Comment on above: Performed By: #### 1 9122-, #### [facility] [address] [place] [address] Rn Immunology - Gertrude [place] [id number] AST [Catalytic activity/Vol] 70 U/L High 15-37 [facility] Comment on above: Performed By: #### 1 9122-10, #### [facility] [address] [place] [address] Rn Immunology - Gertrude [place] [id number] Bilirubin [Mass/Vol] 0.6 mg/dL Normal 0.2-1.0 [facility] Comment on above: Performed By: #### 1 9122-10, #### [facility] [address] [place] [address] Rn Immunology - Gertrude [place] [id number] Calcium [Mass/Vol] 9.0 mg/dL Normal 8.5-10.1 [facility] Comment on above: Performed By: #### 1 9122-10, #### [facility] [address] [place] [address] Rn Immunology - Gertrude [place] [id number] Chloride [Moles/Vol] 101 mmol/L Normal 98-107 [facility] Comment on above: Performed By: #### 1 9122-10, #### [facility] [address] [place] [address] Rn Immunology - Gertrude [place] [id number] CO2 [Moles/Vol] 28 mmol/L Normal 21-32 [facility] Comment on above: Performed By: #### 1 9122-10, #### [facility] [address] [place] [address] Rn Immunology - Gertrude Rios CLIA [id number] Creatinine [Mass/Vol] 0.88 mg/dL Normal 0.51-0.95 [facility] Comment on above: Performed By: #### 1 9122-10, #### [facility] [address] [place] [address] Rn Immunology - Gertrude FRASER [id number] GFR/1.73 sq M predicted among non-blacks MDRD (S/P/Bld) [Vol rate/Area] GLOMERULAR FILTRATION RATE INTERPRETATION~The eGFR is calculated using the MDRD equation.~This equation has been validated in patients with chronic kidney disease;~however, it underestimates the GFR in healthy patients with GFR's over 60 mL/min.~The equation is not valid in children under the age of 18.~NOTE: Criteria for Chronic Kidney Disease:~ ~1. Kidney damage for at least three months, as defined~by structural or functional abnormalities of the kidney,~with or without decreased glomerular filtration rate, manifested by either:~* Pathological abnormalities or~* Markers of Kidney damage, including abnormalities in~the composition of the blood or urine or abnormalities in imaging tests.~ ~2. GFR <60 mL/min/1.73 m squared for at least three months, with or without kidney damage.~ Normal [facility] Comment on above: Performed By: #### 1 9123-9, 13258-4 #### [facility] [address] [facility]. [place] [address] Rn Immunology - Gertrude FRASER [id number] GFR/1.73 sq M.predicted MDRD (S/P/Bld) [Vol rate/Area] mL/min/{1.73_m2} Normal >=59 [facility] Comment on above: Performed By: #### 1 9123-9, 89586-6 #### [facility] [address] [facility] [place] [address] Rn Immunology - Gertrude FRASER [id number] Glucose [Mass/Vol] 125 mg/dL High 74-106 [facility] Comment on above: Performed By: #### 1 9123-9, 42087-3 #### [facility] [address] [facility] [place] [address] Rn Immunology - Gertrude FRASER [id number] Potassium [Moles/Vol] 3.4 mmol/L Low 3.5-5.1 [facility] Comment on above: Performed By: #### 1 9123-9, 62091-1 #### [facility] [address] [place] [address] Rn Immunology - Gertrude FRASER [id number] Protein [Mass/Vol] 7.0 g/dL Normal 6.4-8.2 [facility] Comment on above: Performed By: #### 1 9123-9, 96347-4 #### [facility] [address] [place] [address] Rn Immunology - Gertrude FRASER [id number] Sodium [Moles/Vol] 135 mmol/L Low 136-145 [facility] Comment on above: Performed By: #### 1 9123-9, 39056-6 #### [facility] [address] [place] [address] Rn Immunology - Gertrude FRASER [id number] Urea nitrogen [Mass/Vol] 16 mg/dL Normal 7-17 [facility] Comment on above: Performed By: #### 1 9123-9, 89399-2 #### [facility] [address] [place] [address] Rn Immunology - Gertrude FRASER [id number] D DIMERon 08-27-2018 Fibrin D-dimer DDU (PPP) [Mass/Vol] 0.39 mg/L Normal 0.19-0.50 [facility] Comment on above: Performed By: #### 7 799-0, 01466-8 #### [facility] [address] [place] [address] Rn Immunology - Gertrude FRASER [id number] HDIMER DIMER UNIT CONVERSION Effective October 05, 2013 [facility] has changed their unit of measure for D-Dimer testing from ng/mL to mg/L. To convert to ng/mL multiply result by 1000. Normal [facility] Comment on above: Performed By: #### 7 799-0, 76146-3 #### [facility] [address] [place] [address] Rn Immunology - Gertrude FRASER [id number] MAGNESIUMon 08-27-2018 Magnesium [Mass/Vol] 2.0 mg/dL Normal 1.6-2.6 [facility] Comment on above: Performed By: #### 1 9123-9, 96067-1 #### [facility] [address] [place] [address] Rn Immunology - Gertrude FRASER [id number] PT and PTTon 08-27-2018 aPTT Coag (PPP) [Time] 22.1 Sec Low 23.5-31.3 [facility] Comment on above: Result Comment: spec imen integrity checked Performed By: #### 7 799-0, 33072-7 #### [facility] [address] [place] [address] Rn Immunology - Gertrude FRASER [id number] INR Coag (Bld) [Relative time] INR REFERENCE RANGE INTERPRETATION Patients on Coumadin 2.0 - 3.0 Patients with mechanical heart valves 2.5 - 3.5 Normal [facility] Comment on above: Performed By: #### 7 799-0, 53326-6 #### [facility] [address] [place] [address] Rn Immunology - Gertrude FRASER [id number] INR Coag (PPP) [Relative time] 1.0 {INR} Normal 0.8-1.1 [facility] Comment on above: Performed By: #### 7 799-0, 41987-8 #### [facility] [address] [facility] [place] [address] Rn Immunology - Gertrude FRASER [id number] PT Coag (PPP) [Time] 9.8 Secs Normal 9.3-11.5 [facility] Comment on above: Performed By: #### 7 799-0, 17566-5 #### [facility] [address] [place] [address] Rn Immunology - Gertrude FRASER [id number] TROPONIN Ion 08-27-2018 Troponin I.cardiac [Mass/Vol] ng/mL Normal <=0.045 [facility] Comment on above: Performed By: #### 1 0839-9 #### [facility] [address] [place], [place] [address] Rn Immunology - Gertrude FRASER [id number] Troponin I.cardiac [Mass/Vol] ng/mL Normal <=0.045 [facility] Comment on above: Performed By: #### 1 0839-9 #### [facility] [address] [place] [address] Rn Immunology - Gerturde FRASER [id number] Encounters Encounter Date Encounter Type Care Provider Facility Start: 12-06-2024 End: 12-06-2024 ambulatory [facility] Facility:[facility] Start: 12-05-2024 End: 12-05-2024 ambulatory [facility] Facility:[facility] Start: 07-22-2023 End: 07-22-2023 [address] [place] [facility] Facility:[facility] Start: 07-22-2023 End: 07-22-2023 Subsequent hospital visit by physician [facility] (I-Stat) Work Phone: Cat Scan Start: 06-21-2023 End: 06-21-2023 ambulatory JENNIFER MNEDEL Facility:[facility] Start: 06-21-2023 End: 06-21-2023 [facility] Start: 05-23-2023 End: 05-23-2023 ambulatory [facility] Work Phone: Start: 05-23-2023 End: 05-23-2023 Patient encounter procedure [facility]-Jagdeep Prettyeyjeevan Jha [facility] Start: 04-28-2023 End: 04-28-2023 ambulatory [facility] Work Phone: Start: 04-28-2023 End: 04-28-2023 Patient encounter procedure [facility]-Outpatient Breast Imaging Work Phone: Start: 04-21-2023 End: 04-21-2023 ambulatory [facility] Work Phone: Start: 04-21-2023 End: 04-21-2023 Patient encounter procedure [facility]-Laboratory, Specimen Work Phone: Start: 08-28-2022 Patient encounter procedure [facility]-Laboratory, Specimen Work Phone: Start: 11-18-2021 End: 11-18-[address] Jennifer Combs Work Phone: [facility] Work Phone: Start: 11-18-2021 End: 11-18-[address] Jennifer Combs Work Phone: [facility]-Outpatient Breast Imaging Start: 10-21-2021 End: 10-21-[address] Jennifer Combs Work Phone: [facility] Work Phone: Start: 10-21-2021 End: 10-21-[address] Jennifer Combs Work Phone: [facility]-MRI - [facility] Start: 09-24-2021 End: 09-24-[address] Jennifer Combs Work Phone: [facility] Start: 08-27-2018 End: 08-28-2018 Patient encounter procedure BRANDON STOUT Facility:[facility] - Live Procedures Date Procedure Procedure Detail Performing Clinician Start: 06-21-2023 Us retroperitoneal r eal time w/image complete [facility] Provider Start: 05-23-2023 Urine culture Start: 04-28-2023 Screening mammography Start: 08-28-2022 Clostridium difficil e detection Start: 08-28-2022 Lactoferrin measurement Start: 08-28-2022 Nucleic acid assay Start: 08-28-2022 Stool Occult Blood (VY) Start: 11-18-2021 Screening mammography Cristina Combs Work Phone: Start: 10-21-2021 MRI of joint of lowe r extremity Dr. Jennifer Combs Work Phone: Plan of Treatment Date Care Activity Detail Author Start: 04-27-2026 Screening for malign ant neoplasm of colon [facility] Start: 10-09-2023 Influenza vaccination Influenz a Vaccine (Season Ended) [facility] Start: 06-16-2023 Shingrix Vaccine (2 of 2) Hammond grix Vaccine (2 of 2) [facility] Start: 04-21-2023 [facility] Start: 02-07-2023 Behavioral Health Screening Behavioral Health Screening [facility] Start: 10-08-2022 Covid-19 Vaccine ( season) Covid-19 Vaccine ( season) [facility] Start: 2015 Diabetes Screening Diabetes Screenin g [facility] Start: 2015 Lipid panel Lipid Screening [facility] Start: 2015 Screening for malign ant neoplasm of colon [facility] Start: 2010 Screening for malign ant neoplasm of breast Mammogram Screening [facility] Start: 2000 Screening for malign ant neoplasm of cervix HPV Testing [facility] Start: 1991 Screening for malign ant neoplasm of cervix [facility] Start: 1989 Hepatitis B Vaccine (1 of 3 - 19+ 3-dose series) Hepatitis B Vaccine (1 of 3 - 19+ 3-dose series) [facility] Start: 1989 Urine microalbumin profile DTaP,Tdap,Td Vaccine (1 - Tdap) [facility] Start: 1988 Hepatitis C screening [facility] Start: 1988 HIV screening HIV Screening [facility] Ova and parasites identified in Unspecified specimen by Light microscopy [facility] Path report.final Dx Spec [facility] Immunizations Immunization Date Immunization Notes Care Provider Fa cility 11-09-2021 influenza, injectabl e, quadrivalent, preservative free [facility] 11-09-2021 influenza, seasonal, injectable Dr. Jennifer Combs Work Phone: [facility] 11-09-2021 influenza virus vaccine, unspecified formulation Us 2 Work Phone: [facility] 12-18-2020 Covid (Moderna) Dr. Jennifer fields Work Phone: [facility] 11-25-2020 influenza, injectabl e, quadrivalent, preservative free [facility] 11-25-2020 influenza, seasonal, injectable Dr. Jennifer Combs Work Phone: [facility] 03-11-2020 Covid (Moderna) Dr. Jennifer fields Work Phone: [facility] 02-12-2020 Covid (Moderna) Dr. Jennifer fields Work Phone: [facility] 11-05-2019 influenza, injectabl e, quadrivalent, preservative free [facility] 11-05-2019 influenza, seasonal, injectable Dr. Jennifer Combs Work Phone: [facility] 04-09-2019 tetanus toxoid, redu russell diphtheria toxoid, and acellular pertussis vaccine, adsorbed Dr. Jennifer Combs Work Phone: [facility] 04-05-2019 influenza, injectabl e, quadrivalent, preservative free [facility] 04-05-2019 influenza, seasonal, injectable Dr. Jennifer Combs Work Phone: [facility] Payers Date Payer Category Payer Self-pay [id number] 2022 Unknown MMO MMO [employer] PPO [id number] 2022-Present [phone] [address] [place] [address] PPO [id number] 2022 Unknown [id number] 2008 Unknown HAQ RULE [id number] 1970 Unknown [id number] 1959 Unknown [id number] Unknown [id number] [facility] [id number] 11 [id number] Unknown [id number] Unknown [id number] Social History Date Type Detail Facility Start: 07-03-2020 [facility] Start: 02-11-2020 Non-smoker [facility] Start: 1970 Sex Assigned At Female [facility] Start: 1970 Sex Assigned At Not on file [facility] Start: 07-22-2023 Gender identity Not on file [facility] Start: 07-22-2023 History of Social function [facility] National Score (1-10 0), lower number is lower risk 47 [facility] History of Present illness Narrative 07-22-2023 Reef Suzanne Sanchez RT(R) - 07/22/2023 3:00 PM EDT Note Date & Type Note Facility 07-22-2023 History of Presen t illness Narrative Radiology Service Progress Note DATE OF SERVICE: July 22, 2023 TIME: 3:59 PM PATIENT IDENTITY VERIFICATION COMPLETED USING TWO (2) STANDARD IDENTIFIERS: Name and Date of confirmed by patient verbally. FALL SCREENING: Has the patient had 2 falls in the last year or 1 fall with injury or currently using an Ambulatory Assistive Device (Walker, Cane, Wheelchair, Crutches, etc.)? No PATIENT GENDER DATA: Female. status: : No status: NO. PATIENT RELEVANT IMPLANT DATA REVIEWED: Yes PATIENT PRESENTS WITH AN IMPLANTABLE OR ATTACHED MORTGAGE ACCOUNTING CLERK: No ALLERGIES: Reviewed and unchanged CONTRAST ALLERGY: NO. EXAM: CT -CONTRAST INDUCED NEPHROPATHY RISK FACTORS: Not applicable CREATININE: No results found for: CREAT, EGFROTH, EGFRAA P.O.C.T. RESULTS: POC done: Yes, See Lab Tab July 22, 2023 TREATMENT: N/A PERIPHERAL IV DATA: Ambulatory: A peripheral IV was started in the Left antecubital site with a Angio cath: 22 gauge. RADIOLOGY DEPARTMENT: CT; Exam(s) Completed: Abdomen/Pelvis SIGNATURE: RT Kelsi(R) PATIENT NAME: Neeru Holbrook DATE: July 22, 2023 TIME: 3:59 PM documented in this encounter [facility] Progress note 07-22-2023 Note Date & Type Note Facility 07-22-2023 Note HNO ID: [id number] Author: SUZANNE BENEDICT RT(R) Service: ? Author Type: Senior Web Engineer Type: Progress Notes Filed: 07/22/2023 15:59 Note Text: Radiology Service Progress Note DATE OF SERVICE: July 22, 2023 TIME: 3:59 PM PATIENT IDENTITY VERIFICATION COMPLETED USING TWO (2) STANDARD IDENTIFIERS: Name and Date of confirmed by patient verbally. FALL SCREENING: Has the patient had 2 falls in the last year or 1 fall with injury or currently using an Ambulatory Assistive Device (Walker, Cane, Wheelchair, Crutches, etc.)? No PATIENT GENDER DATA: Female. status: : No status: NO. PATIENT RELEVANT IMPLANT DATA REVIEWED: Yes PATIENT PRESENTS WITH AN IMPLANTABLE OR ATTACHED MORTGAGE ACCOUNTING CLERK: No ALLERGIES: Reviewed and unchanged CONTRAST ALLERGY: NO. EXAM: CT -CONTRAST INDUCED NEPHROPATHY RISK FACTORS: Not applicable CREATININE: No results found for: CREAT, EGFROTH, EGFRAA P.O.C.T. RESULTS: POC done: Yes, See Lab Tab July 22, 2023 TREATMENT: N/A PERIPHERAL IV DATA: Ambulatory: A peripheral IV was started in the Left antecubital site with a Angio cath: 22 gauge. RADIOLOGY DEPARTMENT: CT; Exam(s) Completed: Abdomen/Pelvis SIGNATURE: RT Kelsi(R) PATIENT NAME: Neeru Holbrook DATE: July 22, 2023 TIME: 3:59 PM [facility] History of Present illness Narrative 06-21-2023 Nathan Jackson RDMS - 06/21/2023 7:00 AM EDT Note Date & Type Note Facility 06-21-2023 History of Presen t illness Narrative Radiology Service Progress Note PATIENT NAME: Neeru Holbrook DATE OF SERVICE: June 21, 2023 TIME: 8:18 AM PATIENT IDENTITY VERIFICATION COMPLETED USING TWO (2) IDENTIFIERS: Name and Date of confirmed by patient verbally. FALL SCREENING: Has the patient had 2 falls in the last year or 1 fall with injury or currently using an Ambulatory Assistive Device (Walker, Cane, Wheelchair, Crutches, etc.)? No PATIENT GENDER DATA: Female. status: : No status: NO. PATIENT RELEVANT IMPLANT DATA REVIEWED: Not Applicable PATIENT PRESENTS WITH AN IMPLANTABLE OR ATTACHED MORTGAGE ACCOUNTING CLERK: No RADIOLOGY DEPARTMENT: Ultrasound PERIPHERAL IV DATA: Not applicable SIGNED BY: Nathan Jackson RDMS RVT June 21, 2023 8:18 AM documented in this encounter [facility] Progress note 06-21-2023 Note Date & Type Note Facility 06-21-2023 Note HNO ID: [id number] Author: NATHAN JACKSON RDMS Service: ? Author Type: Dental Associate Type: Progress Notes Filed: 06/21/2023 08:19 Note Text: Radiology Service Progress Note PATIENT NAME: Neeru Holbrook DATE OF SERVICE: June 21, 2023 TIME: 8:18 AM PATIENT IDENTITY VERIFICATION COMPLETED USING TWO (2) IDENTIFIERS: Name and Date of confirmed by patient verbally. FALL SCREENING: Has the patient had 2 falls in the last year or 1 fall with injury or currently using an Ambulatory Assistive Device (Walker, Cane, Wheelchair, Crutches, etc.)? No PATIENT GENDER DATA: Female. status: : No status: NO. PATIENT RELEVANT IMPLANT DATA REVIEWED: Not Applicable PATIENT PRESENTS WITH AN IMPLANTABLE OR ATTACHED MORTGAGE ACCOUNTING CLERK: No RADIOLOGY DEPARTMENT: Ultrasound PERIPHERAL IV DATA: Not applicable SIGNED BY: Nathan Jackson RDMS RVT June 21, 2023 8:18 AM [facility] Clinical Note 04-21-2023 Note Date & Type Note Facility 04-21-2023 Note [facility] Pap Smear Specimen Adequacy April 21, 2023 10:00am Comment . Satisfactory for evaluation. Endocervical and/or squamous metaplasticcells (endocervical component) are present. Comment on above: Satisfactory for melanie luation. Endocervical and/or squamous metaplasticcells (endocervical component) are present. Clinical Note 04-21-2023 Note Date & Type Note Facility 04-21-2023 Note [facility] Pap Smear Specimen Adequacy April 21, 2023 10:00am Comment . Satisfactory for evaluation. Endocervical and/or squamous metaplasticcells (endocervical component) are present. Comment on above: Satisfactory for melanie luation. Endocervical and/or squamous metaplasticcells (endocervical component) are present. Chief complaint+Reason for visit Narrative Note Date & Type Note Facility Chief complaint+Reason for v isit Narrative [facility] Work Phone: Chief complaint+Reason for visit Narrative Note Date & Type Note Facility Chief complaint+Reason for v isit [facility] Work Phone: Evaluation note Note Date & Type Note Facility Evaluation note No assessment information availa ble [facility] Work Phone: Summary Purpose Family History No Family History Records Found Relationship Condition Age at Onset Recorded Date/T bruno mother Hypertension Unknown sister Hypertension Unknown Advance Directives No Advanced Directives Records Found Advance Directive Response Recorded Date/ Time Living Will Yes July 03, 2020 8 :09am Power of Food Service Order Clerk No July 03, 2020 8:09am Chief Complaint and Reason for Visit Chief Complaint SCREENING Additional Source Comments INFORMATION SOURCE (unrecogn ized section and content) DATE CREATED AUTHOR 09/30/[address] [facility] DATE CREATED AUTHOR AUTHOR'S ORGANIZ ATION 07/30/2023 [facility] DATE CREATED AUTHOR AUTHOR'S ORGANIZ ATION 12/20/2024 [facility] Goals (unrecognized section and content) Goals may be documented in a n alternate sectionGoals may be documented in an alternate sectionGoals may be documented in an alternate sectionGoals may be documented in an alternate sectionGoals may be documented in an alternate sectionGoals may be documented in an alternate section Care Teams (unrecognized sec tion and content) Team Status: Active Member Role Status Dates Dr. Earl Abbott MD Family Provider Active Dr. Jennifer Combs MD Primary Care Provider Active Team Status: Active Member Role Status Dates Dr. Jennifer Combs MD Primary Care Prov ider, Attending Provider, Referring Provider Active Team Status: Inactive Member Role Status Dates Dr. Jennifer Combs MD Primary Care Provider, Attendin g Provider Active Team Status: Inactive Member Role Status Dates Dr. Jennifer Combs MD Primary Care Prov ider, Attending Provider, Referring Provider Active Team Status: Active Member Role Status Dates Dr. Earl Abbott MD Family Provider Active Nely Chapman NP-[place] Primary Care Provider Active Team Status: Inactive Member Role Status Dates Nely Chapman NP-C Primary Care Provide r, Attending Provider, Referring Provider Active Cath Laboratory Technician Relationship Specialty Start Date End Date Jennifer Combs MD [address] [facility] [place] [id number] PCP - General Family Medicine 06/21/23 Source Comments (unrecognize d section and content) In the event this informatio n is protected by the Federal Confidentiality of Alcohol and Drug Abuse Patient Records regulations: The Federal rules restrict any use of the information to criminally investigate or prosecute any alcohol or drug abuse patient.[facility] the event this information is protected by the Federal Confidentiality of Alcohol and Drug Abuse Patient Records regulations: The Federal rules restrict any use of the information to criminally investigate or prosecute any alcohol or drug abuse patient.[facility] Reason for Visit (unrecogniz ed section and content) Reason Comments Radiology US Reason Comments Radiology CT Specialty Diagnoses / Procedures Referred By Contac t Referred To Contact Radiology / RADIO CT SCAN [facility] WS Diagnoses Left upper quadrant pain LUQ Abdominal pain x 4 months Auth# [id number] Procedures CT ABD & PELVIS W/CONTRAST CT WWO ABD1 [address] Scan [facility] [address] [place] [address] Referral ID Status Reason Start Date Expiration Date Visits Re quested Visits Authorized [id number] Closed 07/14/2023 08/28/2023 1 1 FOR RECORDS PERTAINING TO PATIENTS WHO ARE [...] BE BASED ON THE PRIMARY CLINICAL RECORDS. [employer] [facility] provides no warranty or guarantee of the accuracy or completeness of information in this document.
[2025-01-11 14:59] LABS: Hematocrit 41.0 % (37-47); Hemoglobin 13.5 g/dL (12.0-15.0); Immature Granulocytes Count 0.010 X10^3/uL (0.0-0.0); Mean Corp Hgb Conc 32.9 g/dL (32-36); Mean Corpuscular Volume 95.3 fL (81-99); Mean Platelet Vol. 10.5 fl (6.2-12.0); NRBC Flagged by Analyzer 0 % (0-5); Platelet Count 303 K/mm3 (150-450); RBC Distribution Width CV 11.8 % (11.6-14.6); RBC Distribution Width SD 40.7 fl (35.1-43.9); Red Blood Count 4.30 M/mm3 (4.2-5.4); White Blood Count 5.9 K/mm3 (4.4-11.0)
[2025-01-11 15:17] LABS: AST(SGOT) 28 U/L (<=31); Alanine Aminotransfer ALT/SGPT 29 U/L (<=34); Albumin, Serum 4.5 g/dL (3.5-5.0); Alkaline Phosphatase 74 U/L (35-104); Anion Gap 11 (5-15); BUN 11 mg/dL (4-19); BUN/Creat Ratio 15.4 RATIO (10-20); Calcium,Total 9.9 mg/dL (7.6-11.0); Carbon Dioxide 26.4 mmol/L (21.0-32.0); Chloride 102 mmol/L (98-108); Cholesterol 240 mg/dL (<=200); Globulin 3.0 g/dL (2.2-4.2); Glucose 93 mg/dL (70-99); Low Density Lipoprotein Calc. 159 mg/dL; Potassium 4.3 mmol/L (3.3-5.1); Triglycerides 94 mg/dL; Very Low Density Lipoprotein 19 mg/dL (5-40); cholesterol:hdl ratio screen 3.71
== END | disposition home or self-care (01) ==
LOC: BFHLAB 11:13
PROVIDERS: PCP Nurse Practitioner Family; Visit Provider Nurse Practitioner Family
DX: Z00.00 Encounter for general adult medical examination without abnormal findings (principal)
CPT/HCPCS: 36415; 80053; 80061; 85025

== ENCOUNTER → 2025-01-18 | Outpatient (CLI) | payer OTHER, SELFPAY ==
--- NOTE | 2025-01-18 14:37 | BI_ITS ---
EXAM: SCRN MAMM (CAD)W/MONI BILAT DATE: 01/18/2025 CLINICAL HISTORY: F, Age 54 y/o , SCREENING TECHNIQUE: Procedure Code: [id number] Modality: MG Procedure: SCRN MAMM (CAD)W/MONI BILAT COMPARISON: Prior exam(s) dated 04/28/2023, 11/18/2021, and 07/25/2020. FINDINGS: TISSUE DENSITY: The breasts are heterogeneously dense, which may obscure small masses. Bilateral Breast Mammographic Findings: Benign-appearing round microcalcifications and macrocalcifications are seen in both breasts. No suspicious masses, suspicious cluster of microcalcifications, architectural distortion or secondary signs of malignancy is identified in either breast. BI/SCRN MAMM (CAD)W/MONI BILAT IMPRESSION: Benign screening mammogram OVERALL FINAL ASSESSMENT BI-RADS 2: BENIGN RECOMMENDATION: Routine annual follow-up in 1 Year Additional Recommendation none A letter with findings and recommendations will be mailed to the patient. Reading Location: [id number]
--- OUTSIDE RECORDS SUMMARY | 2025-01-18 14:53 | XMS RPT_ITS | CCD ---
Author Organization [facility] Care Team Providers Care Talend Etl Developer Name Role Phone BRANDON STOUT Admitting Unavailable BRANDON STOUT Attending Unavailable EARL ABBOTT Primary Care Unavailable Sher FRANCIS Consulting Unavailable JULISSA DAMON Consulting Unavailable EARL ABBOTT Consulting Unavailable Dr. Jennifer Combs Primary Care Provider Dr. Jennifer Combs Referring Provider [phone] Ava SHAH, PABLO Flor Attending Provider Jennifer Combs MD Primary Care Provider JENNIFER COMBS Primary Care Unavailable Nely Chapman Referring Unavailable Nely Chapman Attending Unavailable Nely Chapman Primary Care Unavailable Nely Chapman Attending Unavailable Nely Chapman Primary Care Unavailable Medications Current Medications Medication Drug Class(es) Dates Sig (Normalized) Sig (Original) [facility] (Nk) (6 sources) Start: 07-03-2020 [facility] (Nk) A ctive July 03, 2020 12:00am [...] 12-07-2024 [facility] Culture exhibits no growth. Normal [facility] Comment on above: Performed By: #### M 100.2205 #### [facility] Laboratory [address] [place], [address] CT ABD/PEL W IVCONon 024 CT ABD/PEL W IVCON * * *Final Report* * * DATE OF EXAM: Jul 22 2023 3:28PM [facility] 0530 - CT ABD/PEL W IVCON / [...] images: No additional findings. IMPRESSION: No acute real estate transaction manager: ROMEL Transcribe Date/Time: Jul 29 2023 8:09A Dictated by : JORGE A CONTRERAS MD This examination was interpreted and the report reviewed and electronically signed by: JORGE A CONTRERAS MD on Jul 29 2023 8:16AM EST [id number] CN Normal [facility] KIDNEY/BLADDERon 06-21-19 24 US KIDNEY/BLADDER * * *Final Report* * * DATE OF EXAM: Jun 21 2023 7:27AM [facility] 1055 - US KIDNEY/BLADDER / PROCEDURE REASON: [...] NORMAL SONOGRAPHIC APPEARANCE OF KIDNEYS AND BLADDER. Chief Psychologist: ROMEL Transcribe Date/Time: Jun 21 2023 2:47P Dictated by : STEPH CLAUDIO MD This examination was interpreted and the report reviewed and electronically signed by: STEPH CLAUDIO MD on Jun 21 2023 2:48PM [facility] [id number] CN Normal [facility] US Kidney - bilateral and Ur inary bladderon 06-21-2023 IMPRESSION: NORMAL SONOGRAPHIC APPEARANCE OF KIDNEYS AND BLADDER. Chief Psychologist: [facility] Transcribe Date/Time: Jun 21 2023 2:47P Dictated by : STEPH CLAUDIO MD This examination was interpreted and the report reviewed and electronically signed by: STEPH CLAUDIO MD on Jun 21 2023 2:48PM [facility] DIVISION OF RADIOLOGY * * *Final Report* * * DATE OF EXAM: Jun 21 2023 7:27AM [facility] 1055 - US KIDNEY/BLADDER / PROCEDURE REASON: [...] measures 7 mL. DIVISION OF RADIOLOGY Provider, [facility] [place] - 06/21/2023 * * *Final Report* * [...] NORMAL SONOGRAPHIC APPEARANCE OF KIDNEYS AND BLADDER. Chief Psychologist: [facility] Transcribe Date/Time: Jun 21 2023 2:47P Dictated by : STEPH CLAUDIO MD This examination was interpreted and the report reviewed and electronically signed by: STEPH CLAUDIO MD on Jun 21 2023 2:48PM EST [facility] Radiology Study observation (narrative) Juanis cintron [facility] US Kidney - bilateral and Ur inary bladderOrdered By: Ccf Provider on 06-21-2023 [facility] Absolute lymphocyte countOrd ered By: Nely Chapman on 05-23-2023 Lymphocytes Auto (Unsp spec) [#/Vol] 2.20 10*3/uL 0.83-4.51 [facility] Automated lymphocyte count a s percentage of total leukocytesOrdered By: Nely Chapman on 05-23-2023 Lymphocytes/100 WBC Auto (Unsp spec) 27.4 % 19-41 [facility] Basophil percentageOrdered B y: Nely Chapman on 05-23-2023 Basophils/100 WBC (Bld) 0.7 % 0-1 [facility] Eosinophils/100 WBC (Bld) 1.4 % 0-5 [facility] Hemoglobin (Bld) [Mass/Vol] 13.3 g/dL 12.0-15.0 [facility] Monocytes/100 WBC (Bld) 9.0 % 0-10 [facility] Neutrophils (Bld) [#/Vol] 4.9 10*3/uL 2.0-7.7 [facility] Neutrophils/100 WBC (Bld) 61.3 % 47-70 [facility] WBC (Bld) [#/Vol] 8.0 10*3/uL 4.4-11.0 [facility] Culture, urineOrdered By: Ra doug Chapman on 05-23-2023 Bacteria identified Cx Nom (U) Streptococcus agalactiae (B) [facility] Determination of erythrocyte mean corpuscular volume (MCV)Ordered By: Nely Chapman on 05-23-2023 MCV (RBC) [Entitic vol] 94.0 fL 81-99 [facility] Erythrocyte distribution wid th ratioOrdered By: Nely Chapman on 05-23-2023 Erythrocyte distribution width (RBC) [Ratio] 11.8 % 11.6-14.6 [facility] Erythrocyte distribution wid th standard deviationOrdered By: Nely Chapman on 05-23-2023 Erythrocyte distribution width (RBC) [Entitic vol] 40.5 fL 35.1-43.9 [facility] Hematocrit Auto (Bld) [Volum e fraction]Ordered By: Nely Chapman on 05-23-2023 Hematocrit (Bld) [Volume fraction] 40.4 % 37-47 [facility] Immature granulocytes/100 WB C Auto (Bld)Ordered By: Nely Chapman on 05-23-2023 Immature granulocytes/100 WBC (Bld) 0.200 % 0.0-0.9 [facility] Comment on above: IG% - Immature Granu locytes (promyelocytes, myelocytes and metamyelocytes) > 1% indicates that a LEFT SHIFT is Present. Iron measurement (mass/mass) Ordered By: Nely Chapman on 05-23-2023 Iron (Unsp spec) [Mass/Mass] 82 ug/dL 50-170 [facility] Laboratory - Chemistry and C hemistry - challengeOrdered By: Nely Chapman on 05-23-2023 Cobalamin (Vitamin B12) [Mass/Vol] 359 pg/mL 211-911 [facility] Laboratory - Hematology and Cell countsOrdered By: Nely Chapman on 05-23-2023 MCH (RBC) [Entitic mass] 30.9 pg 27.0-32.0 [facility] MCHC (RBC) [Mass/Vol] 32.9 g/dL 32-36 [facility] Nucleated RBC/100 WBC (Bld) [Ratio] 0 % 0-5 [facility] Platelet mean volume (Bld) [Entitic vol] 10.4 fL 6.2-12.0 [facility] Platelets (Bld) [#/Vol] 346 10*3/uL 150-450 [facility] No Panel InformationOrdered By: Nely Chapman on 05-23-2023 Vitamin D 25-Hydroxy 27.0 ng/mL [facility] Comment on above: Vitamin D 25(OH) Sta tus Range Deficiency <20 ng/mL (50nmol/L) Insufficiency 20 - 30 ng/mL (50 - 75 nmol/L) Sufficiency 30 - 100 ng/mL (75 - 250 nmol/L) Toxicity >100 ng/mL (>250 nmol/L) RBC Auto (Bld) [#/Vol]Ordere d By: Nely Chapman on 05-23-2023 RBC (Bld) [#/Vol] 4.30 10*6/uL 4.2-5.4 [facility] Serum or plasma thyroid stim ulating hormone (TSH) measurement (units/volume)Ordered By: Nely Chapman on 05-23-2023 TSH Qn 2.35 uIU/mL 0.358-3.74 [facility] Absolute lymphocyte countOrd ered By: Jennifer Combs on 04-28-2023 Lymphocytes Auto (Unsp spec) [#/Vol] 2.07 10*3/uL 0.83-4.51 [facility] Automated lymphocyte count a s percentage of total leukocytesOrdered By: Jennifer Combs on 04-28-2023 Lymphocytes/100 WBC Auto (Unsp spec) 34.6 % 19-41 [facility] Basophil percentageOrdered B y: Jennifer Combs on 04-28-2023 Basophils/100 WBC (Bld) 1.0 % 0-1 [facility] Bilirubin [Mass/Vol] 0.50 mg/dL 0.20-1.00 [facility] Comment on above: For patients on eltr ombopag therapy, use of Dimension [place] TBIL is not recommended. Chloride [Moles/Vol] 103 mmol/L 98-107 [facility] Cholesterol [Mass/Vol] 229 mg/dL <200 [facility] Comment on above: <200 mg/dL Desirable 200-240 mg/dL Borderline >240 mg/dL High Risk Eosinophils/100 WBC (Bld) 1.5 % 0-5 [facility] Glucose [Mass/Vol] 99 mg/dL 74-106 [facility] Hemoglobin (Bld) [Mass/Vol] 14.0 g/dL 12.0-15.0 [facility] Monocytes/100 WBC (Bld) 10.2 % 0-10 [facility] Neutrophils (Bld) [#/Vol] 3.2 10*3/uL 2.0-7.7 [facility] Neutrophils/100 WBC (Bld) 52.5 % 47-70 [facility] Potassium [Moles/Vol] 3.9 mmol/L 3.5-5.1 [facility] Protein [Mass/Vol] 7.9 g/dL 6.4-8.2 [facility] Sodium [Moles/Vol] 139 mmol/L 136-145 [facility] Triglyceride [Mass/Vol] 182 mg/dL <199 [facility] Comment on above: The drugs N-Acetylcy steine and Metamizole may falsely depress this assay.Serum Triglycerides Reference Interval Normal <150 mg/dL Borderline high 150 - 199 mg/dL High 200 - 499 mg/dL Very High > or = 500 mg/dL WBC (Bld) [#/Vol] 6.0 10*3/uL 4.4-11.0 [facility] Bilirubin Test strip Ql (U)O rdered By: Jennifer Combs on 04-28-2023 Bilirubin Ql (U) Negative Negative [facility] Determination of erythrocyte mean corpuscular volume (MCV)Ordered By: Jennifer Combs on 04-28-2023 MCV (RBC) [Entitic vol] 94.5 fL 81-99 [facility] Erythrocyte distribution wid th ratioOrdered By: Jennifer Lauryn on 04-28-2023 Erythrocyte distribution width (RBC) [Ratio] 11.7 % 11.6-14.6 [facility] Erythrocyte distribution wid th standard deviationOrdered By: [place] Lauryn on 04-28-2023 Erythrocyte distribution width (RBC) [Entitic vol] 40.2 fL 35.1-43.9 [facility] Hematocrit Auto (Bld) [Volum e fraction]Ordered By: Jennifer Combs on 04-28-2023 Hematocrit (Bld) [Volume fraction] 41.4 % 37-47 [facility] Immature granulocytes/100 WB C Auto (Bld)Ordered By: Jennifer Combs on 04-28-2023 Immature granulocytes/100 WBC (Bld) 0.200 % 0.0-0.9 [facility] Comment on above: IG% - Immature Granu locytes (promyelocytes, myelocytes and metamyelocytes) > 1% indicates that a LEFT SHIFT is Present. Ketones Test strip Ql (U)Ord ered By: Jennifer Combs on 04-28-2023 Ketones Ql (U) Negative Negative [facility] Laboratory - Chemistry and C hemistry - challengeOrdered By: Jennifer Combs on 04-28-2023 Albumin/Globulin [Mass ratio] 1.0 {ratio} 0.9-2.4 [facility] ALP [Catalytic activity/Vol] 86 U/L 45-117 [facility] ALT [Catalytic activity/Vol] 35 U/L 13-56 [facility] Cholesterol in HDL [Mass/Vol] 58 mg/dL >40 [facility] Comment on above: The drugs N-Acetylcy steine and Metamizole may falsely depress this assay. Reference Range HDL <40 mg/dL Low HDL Cholesterol HDL >or= 60 mg/dL High HDL Cholesterol Cholesterol in LDL [Mass/Vol] 135 mg/dL 0-130 [facility] CO2 [Moles/Vol] 29.0 mmol/L 21.0-32.0 [facility] Globulin (S) [Mass/Vol] 4.0 g/dL 2.2-4.2 [facility] Urea nitrogen/Creatinine [Mass ratio] 17.4 mg/mg 10-20 [facility] Laboratory - Hematology and Cell countsOrdered By: Jennifer Combs on 04-28-2023 MCH (RBC) [Entitic mass] 32.0 pg 27.0-32.0 [facility] MCHC (RBC) [Mass/Vol] 33.8 g/dL 32-36 [facility] Nucleated RBC/100 WBC (Bld) [Ratio] 0 % 0-5 [facility] Platelet mean volume (Bld) [Entitic vol] 9.9 fL 6.2-12.0 [facility] Platelets (Bld) [#/Vol] 311 10*3/uL 150-450 [facility] Nitrite Test strip Ql (U)Ord ered By: Jennifer Combs on 04-28-2023 Nitrite Ql (U) Negative Negative [facility] No Panel InformationOrdered By: Jennifer Combs on 04-28-2023 Estimated GFR (MDRD) Amer 96 mL/min >60 [facility] Comment on above: GFR Calc Estimated GFR (MDRD) Non-Af Amer 79 mL/min >60 [facility] Comment on above: Non- GFR Calc Reactive Lymphocytes 1+ [facility] VLDL Cholesterol 36 mg/dL 5-40 [facility] Protein Test strip Ql (U)Ord ered By: Jennifer Combs on 04-28-2023 Protein Ql (U) 15 mg/dl Negative [facility] RBC Auto (Bld) [#/Vol]Ordere d By: Jennifer Combs on 04-28-2023 RBC (Bld) [#/Vol] 4.38 10*6/uL 4.2-5.4 [facility] Serum or plasma calcium genaro urement (mass/volume)Ordered By: Jennifer Combs on 04-28-2023 Calcium [Mass/Vol] 9.9 mg/dL 8.5-10.1 [facility] Serum or plasma creatinine m easurement (mass/volume)Ordered By: Jennifer Combs on 04-28-2023 Creatinine [Mass/Vol] 0.80 mg/dL 0.55-1.02 [facility] Comment on above: The validity of the calculated GFR & GFRAA in patients over 70 years has not been determined. Clinical correlation is essential. Serum or plasma urea nitroge n measurement (mass/volume)Ordered By: Jennifer Combs on 04-28-2023 Urea nitrogen [Mass/Vol] 14 mg/dL 7-18 [facility] Thin prep Papanicolaou smear with manual screeningOrdered By: Jennifer Combs on 04-28-2023 Thin prep Papanicolaou smear with manual screening 3.9 g/dL 3.2-5.0 [facility] Thin prep Papanicolaou smear with manual screening 24 U/L 15-37 [facility] Thin prep Papanicolaou smear with manual screening 7 5-15 [facility] Urine blood detectionOrdered By: Jennifer Combs on 04-28-2023 RBC Ql (U) 10 /ul Negative [facility] Urine clarityOrdered By: Ludwin Combs on 04-28-2023 Clarity (U) Sl. Cloudy Clear [facility] Urine color determinationOrd ered By: Jennifer Combs on 04-28-2023 Color (U) Yellow Yellow [facility] Urine glucose detectionOrder ed By: Jennifer Combs on 04-28-2023 Glucose Ql (U) Normal mg/dl Normal [facility] Urine leukocyte esterase det ection by dipstickOrdered By: Jennifer Combs on 04-28-2023 Leukocyte esterase Test strip Ql (U) 25 /ul Negative [facility] Urine pHOrdered By: Jennifer fields on 04-28-2023 pH (U) 6.5 [pH] 5.0 - 8.0 [facility] Urine specific gravity measu rementOrdered By: Jennifer Combs on 04-28-2023 Specific gravity (U) [Rel density] 1.020 1.002-1.030 [facility] Urine urobilinogen measureme ntOrdered By: Jennifer Combs on 04-28-2023 Urobilinogen Ql (U) Normal mg/dl Normal [facility] Cervical or vaginal specimen microscopic examination by liquid based cytology (reportOrdered By: Jennifer Combs on 04-21-2023 Cytology report Cyto stain.thin prep Doc (Cvx/Vag) Comment . [facility] Comment on above: Criteria not met, HP V Genotype not performed.Performed at: = - Lab[address] [id number] Director: Li Rivera MD, Phone: [phone] at: [address] [id number] Director: Li Rivera MD, Phone: [phone] Cervical or vagninal specime n microscopic examination by cytology stain (reported asOrdered By: Jennifer Combs on 04-21-2023 Cytology report Cyto stain Doc (Cvx/Vag) Comment . [facility] Comment on above: The Pap smear is a s creening test designed to aid in thedetection of premalignant and malignant conditions of theuterine cervix. It is not a diagnostic procedure andshould not be used as the sole means of detecting cervicalcancer. Both false-positive and false-negative reports dooccur. Laboratory - CytologyOrdered By: Jennifer Combs on 04-21-2023 Software Intern Cyto stain Nom (Cvx/Vag) [ID] Comment . [facility] Comment on above: Jamal Henderson, Cytot echnologist (ASCP) Laboratory - Miscellaneous t estsOrdered By: Jennifer Combs on 04-21-2023 Service comment (Unsp spec) [Interp] . . [facility] No Panel InformationOrdered By: Jennifer Combs on 04-21-2023 Pap Smear Additional Comments 30-65 . [facility] Thin prep Papanicolaou smear with manual screeningOrdered By: Jennifer Combs on 04-21-2023 Thin prep Papanicolaou smear with manual screening Comment . [facility] Comment on above: NEGATIVE FOR INTRAEP ITHELIAL LESION OR MALIGNANCY. This liquid based Th inPrep(R) pap test was screened withthe use of an image guided system. Clostridium difficile detect ion by polymerase chain reactionOrdered By: Jennifer Combs on 08-28-2022 C. difficile DNA OTIS+probe Ql (Unsp spec) [facility] Stool enteric pathogen panel by probe and target amplification methodOrdered By: Jennifer Combs on 08-28-2022 Gastrointestinal pathogens panel OTIS+probe (Stl) [facility] Stool lactoferrin detection by immunoassayOrdered By: Jennifer Combs on 08-28-2022 Lactoferrin IA Ql (Stl) [facility] Laboratory - Microbiology an d Antimicrobial susceptibilityon 09-24-2021 SARS-CoV-2 (COVID-19) RNA OTIS+probe Ql (Unsp spec) Detected [facility] Work Phone: No Panel Informationon 09-24 POC Nasal Swab Influenza A,B Not detected [facility] Work Phone: POC Nasal Swab RSV Not detected [facility] Work Phone: CBC with DIFFERENTIALon 08-08 Basophils (Bld) [#/Vol] 0.04 10*3/uL Normal <=0.70 [facility] Comment on above: Performed By: #### 5 7021-8 #### [facility] [address] [place] [address] Civil Engineering Director - Gertrude Rios CLIA [id number] Basophils/100 WBC (Bld) 0.7 % Normal <=2.0 [facility] Comment on above: Performed By: #### 5 7021-8 #### [facility] [address] [place] [address] Civil Engineering Director - Gertrude Rios CLIA [id number] Eosinophils (Bld) [#/Vol] 0.09 10*3/uL Normal <=0.70 [facility] Comment on above: Performed By: #### 5 7021-8 #### [facility] [address] [place] [address] Civil Engineering Director - Gertrude [place] [id number] Eosinophils/100 WBC (Bld) 1.5 % Normal <=10.0 [facility] Comment on above: Performed By: #### 5 7021-8 #### [facility] [address] [place] [address] Civil Engineering Director - Gertrude [place] [id number] Erythrocyte distribution width (RBC) [Entitic vol] 38.5 fL Normal 36.4-46.3 [facility] Comment on above: Performed By: #### 5 7021-8 #### [place] [address] [place] [address] Civil Engineering Director - Gertrude [place] [id number] Hematocrit (Bld) [Volume fraction] 36.4 % Low 37.0-47.0 [facility] Comment on above: Performed By: #### 5 7021-8 #### [facility] [address] [place] [address] Civil Engineering Director - Gertrude [place] [id number] Hemoglobin (Bld) [Mass/Vol] 12.4 g/dL Normal 12.0-16.0 [facility] Comment on above: Performed By: #### 5 7021-8 #### [facility] [address] [place] [address] Civil Engineering Director - Gertrude [place] [id number] Immature granulocytes (Bld) [#/Vol] 0.01 10*3/uL Normal <=0.10 [facility] Comment on above: Performed By: #### 5 7021-8 #### [facility] [address] [place] [address] Civil Engineering Director - Gertrude [place] [id number] Immature granulocytes/100 WBC (Bld) 0.20 % Normal <=1.50 [facility] Comment on above: Performed By: #### 5 7021-8 #### [facility] [address] [place] [address] Civil Engineering Director - Gertrude [place] [id number] Lymphocytes (Bld) [#/Vol] 1.86 10*3/uL Normal 1.20-3.40 [facility] Comment on above: Performed By: #### 5 7021-8 #### [facility] [address] [place] [address] Civil Engineering Director - Gertrude [place] [id number] Lymphocytes/100 WBC (Bld) 30.4 % Normal 20.0-40.0 [facility] Comment on above: Performed By: #### 5 7021-8 #### [place] [address] [place] [address] Civil Engineering Director - Gertrude [place] [id number] MCH (RBC) [Entitic mass] 32.1 pg High 27.0-31.0 [facility] Comment on above: Performed By: #### 5 7021-8 #### [address] [place] [address] Civil Engineering Director - Gerturde [place] [id number] MCHC (RBC) [Mass/Vol] 34.1 g/dL Normal 32.0-36.0 [facility] Comment on above: Performed By: #### 5 7021-8 #### [place] [address] [place] [address] Civil Engineering Director - Gertrude [place] [id number] MCV (RBC) [Entitic vol] 94.3 fL Normal 80.0-100.0 [facility] Comment on above: Performed By: #### 5 7021-8 #### [place] [address] [place] [address] Civil Engineering Director - Gertrude [place] [id number] Monocytes (Bld) [#/Vol] 0.53 10*3/uL Normal 0.10-0.60 [facility] Comment on above: Performed By: #### 5 7021-8 #### [place] [address] [place] [address] Civil Engineering Director - Gertrude [place] [id number] Monocytes/100 WBC (Bld) 8.7 % High <=8.0 [facility] Comment on above: Performed By: #### 5 7021-8 #### [place] [address] [place] [address] Civil Engineering Director - Gertrude [place] [id number] Neutrophils (Bld) [#/Vol] 3.59 10*3/uL Normal 1.40-6.50 [facility] Comment on above: Performed By: #### 5 7021-8 #### [address] [place] [address] Civil Engineering Director - Gertrude [place] [id number] Neutrophils/100 WBC (Bld) 58.5 % Normal 50.0-70.0 [facility] Comment on above: Performed By: #### 5 7021-8 #### [address] [place] [address] Civil Engineering Director - Gertrude [place] [id number] Nucleated RBC (Bld) [#/Vol] 0.00 10*3/uL Normal <=0.10 [facility] Comment on above: Performed By: #### 5 7021-8 #### [address] [place] [address] Civil Engineering Director - Gertrude [place] [id number] Platelet mean volume (Bld) [Entitic vol] 10.3 fL Normal 9.0-13.0 [facility] Comment on above: Performed By: #### 5 7021-8 #### [address] [place] [address] Civil Engineering Director - Gertrude WEBSTERIA [id number] Platelets (Bld) [#/Vol] 224 10*3/uL Normal 130-400 [facility] Comment on above: Performed By: #### 5 7021-8 #### [address] [place] [address] Civil Engineering Director - Gertrude [place] [id number] RBC (Bld) [#/Vol] 3.86 10*6/uL Low 4.00-6.30 [facility] Comment on above: Performed By: #### 5 7021-8 #### [facility] [address] [place] [address] Civil Engineering Director - Gertrude FRASER [id number] WBC (Bld) [#/Vol] 6.12 10*3/uL Normal 4.80-10.80 [facility] Comment on above: Performed By: #### 5 7021-8 #### [facility] [address] [place] [address] Civil Engineering Director - Gertrude FRASER [id number] CHEST AP PORTABLEon 08-28-19 19 CHEST AP PORTABLE EXAM: CHEST AP PORTABLE HISTORY: CHEST PAIN, UNSPECIFIED COMPARISON: None. TECHNIQUE: Portable chest was done at 7:12 PM. FINDINGS: Trachea is midline. Mediastinum is not widened. Heart size is unremarkable. The lungs are clear and well aerated. No effusion or nodule or pneumothorax is noted. IMPRESSION: Nonacute portable chest. Normal [facility] COMPREHENSIVE METABOLIC PANE Edward 08-27-2018 Albumin [Mass/Vol] 3.6 g/dL Normal 3.4-5.0 [facility] Comment on above: Performed By: #### 1 9123-9, 12478-7 #### [facility] [address] [place] [address] Civil Engineering Director - Gertrude FRASER [id number] ALP [Catalytic activity/Vol] 66 U/L Normal 50-136 [facility] Comment on above: Performed By: #### 1 9123-9, 58646-3 #### [facility] [address] [place] [address] Civil Engineering Director - Gertrude FRASER [id number] ALT [Catalytic activity/Vol] 48 U/L Normal 14-59 [facility] Comment on above: Performed By: #### 1 9123-9, 72300-9 #### [facility] [address] [place] [address] Civil Engineering Director - Gertrude FRASER [id number] Anion gap [Moles/Vol] 6.0 mmol/L Normal <=15.0 [facility] Comment on above: Performed By: #### 1 9122-, #### [facility] [address] [place] [address] Civil Engineering Director - Gertrude WEBSTERIA [id number] AST [Catalytic activity/Vol] 70 U/L High 15-37 [facility] Comment on above: Performed By: #### 1 9122-10, #### [facility] [address] [place] [address] Civil Engineering Director - Gertrude WEBSTERIA [id number] Bilirubin [Mass/Vol] 0.6 mg/dL Normal 0.2-1.0 [facility] Comment on above: Performed By: #### 1 9122-10, #### [facility] [address] [place] [address] Civil Engineering Director - Gertrude WEBSTERIA [id number] Calcium [Mass/Vol] 9.0 mg/dL Normal 8.5-10.1 [facility] Comment on above: Performed By: #### 1 9122-10, #### [facility] [address] [place] [address] Civil Engineering Director - Gertrude WEBSTERIA [id number] Chloride [Moles/Vol] 101 mmol/L Normal 98-107 [facility] Comment on above: Performed By: #### 1 9122-10, #### [facility] [address] [place] [address] Civil Engineering Director - Gertrude WEBSTER[place] [id number] CO2 [Moles/Vol] 28 mmol/L Normal 21-32 [facility] Comment on above: Performed By: #### 1 9122-10, #### [facility] [address] [place] [address] Civil Engineering Director - Gertrude Rios CLIA [id number] Creatinine [Mass/Vol] 0.88 mg/dL Normal 0.51-0.95 [facility] Comment on above: Performed By: #### 1 9122-10, #### [facility] [address] [place] [address] Civil Engineering Director - Gertrude FRASER [id number] GFR/1.73 sq M predicted among non-blacks MDRD [...] months, with or without kidney damage.~ Normal [facility] Comment on above: Performed By: #### 1 9123-9, 16743-0 #### [facility] [address] [place] [address] Civil Engineering Director - Gertrude FRASER [id number] GFR/1.73 sq M.predicted MDRD (S/P/Bld) [Vol rate/Area] mL/min/{1.73_m2} Normal >=59 [facility] Comment on above: Performed By: #### 1 9123-9, 37824-2 #### [facility] [address] [place] [address] Civil Engineering Director - Gertrude FRASER [id number] Glucose [Mass/Vol] 125 mg/dL High 74-106 [facility] Comment on above: Performed By: #### 1 9123-9, 38717-7 #### [facility] [address] [place] [address] Civil Engineering Director - Gertrude FRASER [id number] Potassium [Moles/Vol] 3.4 mmol/L Low 3.5-5.1 [facility] Comment on above: Performed By: #### 1 9123-9, 98981-7 #### [facility] [address] [place] [address] Civil Engineering Director - Gertrude FRASER [id number] Protein [Mass/Vol] 7.0 g/dL Normal 6.4-8.2 [facility] Comment on above: Performed By: #### 1 9123-9, 95236-2 #### [facility] [address] [place] [address] Civil Engineering Director - Gertrude FRASER [id number] Sodium [Moles/Vol] 135 mmol/L Low 136-145 [facility] Comment on above: Performed By: #### 1 9123-9, 35291-6 #### [facility] [address] [place] [address] Civil Engineering Director - Gertrude FRASER [id number] Urea nitrogen [Mass/Vol] 16 mg/dL Normal 7-17 [facility] Comment on above: Performed By: #### 1 9123-9, 11959-1 #### [facility] [address] [place] [address] Civil Engineering Director - Gertrude FRASER [id number] D DIMERon 08-27-2018 Fibrin D-dimer DDU (PPP) [Mass/Vol] 0.39 mg/L Normal 0.19-0.50 [facility] Comment on above: Performed By: #### 7 799-0, 96949-2 #### [facility] [address] [place] [address] Civil Engineering Director - Gertrude FRASER [id number] HDIMER DIMER UNIT CONVERSION Effective October 05, 2013 [facility] has changed their unit of measure for D-Dimer testing from ng/mL to mg/L. To convert to ng/mL multiply result by 1000. Normal [facility] Comment on above: Performed By: #### 7 799-0, 91071-9 #### [facility] [address] [place] [address] Civil Engineering Director - Gertrude FRASER [id number] MAGNESIUMon 08-27-2018 Magnesium [Mass/Vol] 2.0 mg/dL Normal 1.6-2.6 [facility] Comment on above: Performed By: #### 1 9123-9, 13649-6 #### [facility] [address] [place] [address] Civil Engineering Director - Gertrude FRASER [id number] PT and PTTon 08-27-2018 aPTT Coag (PPP) [Time] 22.1 Sec Low 23.5-31.3 [facility] Comment on above: Result Comment: spec imen integrity checked Performed By: #### 7 799-0, 14203-4 #### [facility] [address] [place] [address] Civil Engineering Director - Gertrude FRASER [id number] INR Coag (Bld) [Relative time] INR REFERENCE RANGE INTERPRETATION Patients on Coumadin 2.0 - 3.0 Patients with mechanical heart valves 2.5 - 3.5 Normal [facility] Comment on above: Performed By: #### 7 799-0, 27189-5 #### [facility] [address] [place] [address] Civil Engineering Director - Gertrude FRASER [id number] INR Coag (PPP) [Relative time] 1.0 {INR} Normal 0.8-1.1 [facility] Comment on above: Performed By: #### 7 799-0, 76508-1 #### [facility] [address] [place] [address] Civil Engineering Director - Gertrude FRASER [id number] PT Coag (PPP) [Time] 9.8 Secs Normal 9.3-11.5 [facility] Comment on above: Performed By: #### 7 799-0, 39488-1 #### [facility] [address] [place] [address] Civil Engineering Director - Gertrude FRASER [id number] TROPONIN Ion 08-27-2018 Troponin I.cardiac [Mass/Vol] ng/mL Normal <=0.045 [facility] Comment on above: Performed By: #### 1 0839-9 #### [facility] [address] [place], [place] [address] Civil Engineering Director - Gertrude FRASER [id number] Troponin I.cardiac [Mass/Vol] ng/mL Normal <=0.045 [facility] Comment on above: Performed By: #### 1 0839-9 #### [facility] [address] [place] [address] Civil Engineering Director - Gertrude FRASER [id number] Encounters Encounter Date Encounter Type Care Provider Facility Start: 12-06-2024 End: 12-06-2024 ambulatory [facility] Facility:[facility] Start: 12-05-2024 End: 12-05-2024 ambulatory [facility] Facility:[facility] Start: 07-22-2023 End: 07-22-2023 ambulatory CACHE Jeevan [facility] Facility:[facility] Start: 07-22-2023 End: 07-22-2023 Subsequent hospital visit by physician [facility] ([facility]-Stat) Work Phone: Cat Scan Start: 06-21-2023 End: 06-21-2023 ambulatory JENNIFER WVEDEL Facility:[facility] Start: 06-21-2023 End: 06-21-2023 [facility]: [facility] Start: 05-23-2023 End: 05-23-2023 ambulatory [facility] Work Phone: Start: 05-23-2023 End: 05-23-2023 Patient encounter procedure [facility]-Jagdeep Prettyeyjeevan Jha [facility] Start: 04-28-2023 End: 04-28-2023 ambulatory [facility] Work Phone: Start: 04-28-2023 End: 04-28-2023 Patient encounter procedure [facility]-Outpatient Breast Imaging Work Phone: Start: 04-21-2023 End: 04-21-2023 ambulatory [facility] Work Phone: Start: 04-21-2023 End: 04-21-2023 Patient encounter procedure [facility]-Laboratory, Specimen Work Phone: Start: 08-28-2022 Patient encounter procedure [facility]-Laboratory, Specimen Work Phone: Start: 11-18-2021 End: 11-18-[address] Jennifer Combs Work Phone: [facility] Work Phone: Start: 11-18-2021 End: 11-18-[address] Jennifer Combs Work Phone: [facility]-Outpatient Breast Imaging Start: 10-21-2021 End: 10-21-[address] Jennifer Combs Work Phone: [facility] Work Phone: Start: 10-21-2021 End: 10-21-[address] Jennifer Combs Work Phone: [facility]-MRI - [facility] Start: 09-24-2021 End: 09-24-[address] Jennifer Combs Work Phone: [facility]-Now Clinic Start: 08-27-2018 End: 08-28-2018 Patient encounter procedure BRANDON STOUT Facility:[facility] - Live Procedures Date Procedure Procedure [...] Screening for malign ant neoplasm of colon [facility] Start: 10-09-2023 Influenza vaccination Influenz a Vaccine (Season Ended) [facility] Start: 06-16-2023 Shingrix Vaccine (2 of 2) Hammond grix Vaccine (2 of 2) [facility] Start: 04-21-2023 [facility] Start: 02-07-2023 Behavioral Health Screening Behavioral Health Screening [facility] Start: 10-08-2022 Covid-19 Vaccine ( season) Covid-19 Vaccine ( season) [facility] Start: 2015 Diabetes Screening Diabetes Screenin g [facility] Start: 2015 Lipid panel Lipid Screening [facility] Start: 2015 Screening for malign ant neoplasm of colon [facility] Start: 2010 Screening for malign ant neoplasm of breast Mammogram Screening [facility] Start: 2000 Screening for malign ant neoplasm of cervix HPV Testing [facility] Start: 1991 Screening for malign ant neoplasm of cervix [facility] Start: 1989 Hepatitis B Vaccine (1 of 3 - 19+ 3-dose series) Hepatitis B Vaccine (1 of 3 - 19+ 3-dose series) [facility] Start: 1989 Urine microalbumin profile DTaP,Tdap,Td Vaccine (1 - Tdap) [facility] Start: 1988 [facility] Start: 1988 HIV screening HIV Screening [facility] Ova and parasites identified in Unspecified specimen by Light microscopy [facility] Path report.final Dx Spec [facility] Immunizations Immunization Date Immunization Notes Care Provider Fa cility 11-09-2021 influenza, injectabl e, quadrivalent, preservative free [facility] 11-09-2021 influenza, seasonal, injectable Dr. Jennifer Combs Work Phone: [facility] 11-09-2021 influenza virus vaccine, unspecified formulation Us 2 Work Phone: [facility] 12-18-2020 Covid (Moderna) Dr. Jennifer fields Work Phone: [facility] 11-25-2020 influenza, injectabl e, quadrivalent, preservative free [facility] 11-25-2020 influenza, seasonal, injectable Dr. Jennifer Combs Work Phone: [facility] 03-11-2020 Covid (Moderna) Dr. Jennifer fields Work Phone: [facility] 02-12-2020 Covid (Moderna) Dr. Jennifer fields Work Phone: [facility] 11-05-2019 influenza, injectabl e, quadrivalent, preservative free [facility] 11-05-2019 influenza, seasonal, injectable Dr. Jennifer Combs Work Phone: [facility] 04-09-2019 tetanus toxoid, redu russell diphtheria toxoid, and acellular pertussis vaccine, adsorbed Dr. Jennifer Combs Work Phone: [facility] 04-05-2019 influenza, injectabl e, quadrivalent, preservative free [facility] 04-05-2019 influenza, seasonal, injectable Dr. Jennifer Combs Work Phone: [facility] Payers Date Payer Category Payer Self-pay [id number] 2022 Unknown MMO M[employer] PPO [id number] 2022-Present [phone] [address] [place] [address] PPO [id number] 2022 Unknown [id number] 2008 Unknown HAQ RULE [id number] 1970 Unknown [id number] 1959 Unknown [id number] Unknown [id number] Unknown [facility] [id number] 11 [id number] Unknown [id number] Unknown [id number] Social History Date Type Detail Facility [facility]: [facility] Start: 02-11-2020 Non-smoker [facility] Start: 1970 Sex [facility]igned At [facility] Start: 1970 Sex Assigned At Not on file [facility] Start: 07-22-2023 Gender identity Not on file [facility] Start: 07-22-2023 History of Social function [facility] National Score (1-10 0), lower number is lower risk 47 [facility] History of Present illness Narrative 07-22-2023 Reef [...] PATIENT PRESENTS WITH AN IMPLANTABLE OR ATTACHED LOSS PREVENTION REPRESENTATIVE: No ALLERGIES: Reviewed and unchanged CONTRAST ALLERGY: [...] TIME: 3:59 PM documented in this encounter [facility] Progress note 07-22-2023 Note Date & Type Note Facility 07-22-2023 Note HNO ID: [id number] Author: SUZANNE BENEDICT RT(R) Service: ? Author Type: Room Server Type: Progress Notes Filed: 07/22/2023 15:59 Note [...] PATIENT PRESENTS WITH AN IMPLANTABLE OR ATTACHED LOSS PREVENTION REPRESENTATIVE: No ALLERGIES: Reviewed and unchanged CONTRAST ALLERGY: [...] DATE: July 22, 2023 TIME: 3:59 PM [facility] History of Present illness Narrative 06-21-2023 Nathan [...] PATIENT PRESENTS WITH AN IMPLANTABLE OR ATTACHED LOSS PREVENTION REPRESENTATIVE: No RADIOLOGY DEPARTMENT: Ultrasound PERIPHERAL IV DATA: Not applicable SIGNED BY: Nathan Jackson RDMS RVT June 21, 2023 8:18 AM documented in this encounter [facility] Progress note 06-21-2023 Note Date & Type Note Facility 06-21-2023 Note HNO ID: [id number] Author: NATHAN JACKSON RDMS Service: ? Author Type: [employer] Type: Progress Notes Filed: 06/21/2023 08:19 Note [...] PATIENT PRESENTS WITH AN IMPLANTABLE OR ATTACHED LOSS PREVENTION REPRESENTATIVE: No RADIOLOGY DEPARTMENT: Ultrasound PERIPHERAL IV DATA: Not applicable SIGNED BY: Nathan Jackson RDMS RVT June 21, 2023 8:18 AM [facility] Clinical Note 04-21-2023 Note Date & Type Note Facility 04-21-2023 Note [facility] Pap Smear Specimen Adequacy April 21, 2023 10:00am Comment . Satisfactory for evaluation. Endocervical and/or squamous metaplasticcells (endocervical component) are present. Comment on above: Satisfactory for melanie luation. Endocervical and/or squamous metaplasticcells (endocervical component) are present. Clinical Note 04-21-2023 Note Date & Type Note Facility 04-21-2023 Note [facility] Pap Smear Specimen Adequacy April 21, 2023 10:00am Comment . Satisfactory for evaluation. Endocervical and/or squamous metaplasticcells (endocervical component) are present. Comment on above: Satisfactory for melanie luation. Endocervical and/or squamous metaplasticcells (endocervical component) are present. Chief complaint+Reason for visit Narrative Note Date & Type Note Facility Chief complaint+Reason for v isit Narrative [facility] Work Phone: Chief complaint+Reason for visit Narrative Note Date & Type Note Facility Chief complaint+Reason for v isit [facility] Work Phone: Evaluation note Note Date & Type Note Facility Evaluation note No assessment information availa ble [facility] Work Phone: Summary Purpose Family History No Family History Records Found Relationship Condition Age at Onset Recorded Date/T bruno mother Hypertension Unknown sister Hypertension Unknown Advance Directives No Advanced Directives Records Found Advance Directive Response Recorded Date/ Time Living Will Yes July 03, 2020 8 :09am 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 No July 03, 2020 8:09am Chief Complaint and Reason for Visit Chief Complaint SCREENING Additional Source Comments INFORMATION SOURCE (unrecogn ized section and content) DATE CREATED AUTHOR 09/30/2018 [facility] DATE CREATED AUTHOR AUTHOR'S ORGANIZ ATION 07/30/2023 [facility] DATE CREATED AUTHOR AUTHOR'S ORGANIZ ATION 12/20/2024 [facility] Goals (unrecognized section and content) Goals may [...] Provide r, Attending Provider, Referring Provider Active Talend Etl Developer Relationship Specialty Start Date End Date Jennifer Combs MD [address] [facility] [place] [address] PCP - General Family Medicine 06/21/23 Source Comments (unrecognize d section and content) In the event this informatio n is protected by the Federal Confidentiality of Alcohol and Drug Abuse Patient Records regulations: The Federal rules restrict any use of the information to criminally investigate or prosecute any alcohol or drug abuse patient.[facility] the event this information is protected by the Federal Confidentiality of Alcohol and Drug Abuse Patient Records regulations: The Federal rules restrict any use of the information to criminally investigate or prosecute any alcohol or drug abuse patient.[facility] Reason for Visit (unrecogniz ed section and content) Reason Comments Radiology US Reason Comments Radiology CT Specialty Diagnoses / Procedures Referred By Contac t Referred To Contact Radiology / RADIO CT SCAN [facility] Diagnoses Left upper quadrant pain LUQ Abdominal pain x 4 months Auth# [id number] Procedures CT ABD & PELVIS W/CONTRAST CT WWO ABD1 [address] Scan [facility] [address] [place] [address] Referral ID Status Reason Start Date Expiration Date Visits Re quested Visits Authorized [id number] Closed 07/14/2023 08/28/2023 1 1 FOR RECORDS [...] BE BASED ON THE PRIMARY CLINICAL RECORDS. [employer] [facility]. provides no warranty or guarantee of the accuracy or completeness of information in this document.
== END | disposition home or self-care (01) ==
LOC: OPBI 14:33
PROVIDERS: PCP Family Medicine; Referring Provider Family Medicine; Visit Provider Family Medicine
DX: Z12.31 Encounter for screening mammogram for malignant neoplasm of breast (principal)
CPT/HCPCS: 77063; 77067